=== PATIENT | male | born 1965 | race African-American/Black ===

== ENCOUNTER 2019-01-10 17:02 | Emergency (ER) | payer BC, OTHER ==
[2019-01-10] MEDS ORDERED: NA CHLORIDE 0.9% 1,000 ML ONE (17:29)
[2019-01-10] MEDS ORDERED: CEFTRIAXONE/SWI 1gm 1 GM/10 ML SYR ONE (17:30)
[2019-01-10 17:59] LABS: Absolute Lymphocytes (CBC) 2.3 K/uL (0.7-4.9); Hematocrit 35.1 % (39.6-49.0); Lymphocytes % 16.1 % (15.3-44.8); MPV 10.6 fL (7.6-11.3); RBC Red Blood Cell Count 3.87 M/uL (4.33-5.43)
[2019-01-10] MEDS ORDERED: METOCLOPRAMIDE 10 MG/2mL INJ ONE (18:02)
[2019-01-10] MEDS ORDERED: KETOROLAC 30 MG/ML INJ ONE (18:02)
[2019-01-10 18:17] LABS: ALT/SGPT 17 U/L (12-78); AST/SGOT 12 U/L (15-37); Albumin 3.6 g/dL (3.4-5.0); Alkaline Phosphatase 67 U/L (45-117); BUN Blood Urea Nitrogen 11 mg/dL (7-18); Bicarbonate 30 mmol/L (21-32); Bilirubin Direct 0.2 mg/dL (0-0.2); Glucose Level 90 mg/dL (74-106); Lipase 60 U/L (73-393); Potassium 3.4 mmol/L (3.5-5.1); Protein, Total 7.5 g/dL (6.4-8.2); Sodium Level 139 mmol/L (136-145)
[2019-01-10 19:21] LABS: Urine Blood NEGATIVE (NEG); Urine Glucose NEGATIVE (NEG); Urine Protein NEGATIVE (NEG)
--- NOTE | 2019-01-10 19:26 | ER ---
Nurse's Notes [facility] Name: Jamar Cheng Age: 53 yrs Sex: Male : 1965 Arrival Date: 01/10/2019 Time: 17:03 Bed 18 Private MD: Diagnosis: Cystitis, unspecified without hematuria Presentation: 01/10 17:13 Presenting complaint: Patient states: Has hesitancy when urinating, has gotten worse rb1 since Thursday. Headache, weakness started on Thursday. c/o nausea and constipation. Transition of care: patient was not received from another setting of care. Onset of symptoms was January 07, 2019. Risk Assessment: Do you want to hurt yourself or someone else? Patient reports no desire to harm self or others. Care prior to arrival: None. 17:13 Method Of Arrival: Ambulatory rb1 17:13 Acuity: IRWIN 3 rb1 Triage Assessment: 17:24 The onset of the patients symptoms was January 10, 2019 at 06:00. General: Appears in bp no apparent distress. comfortable, Behavior is cooperative, appropriate for age, anxious. Pain: Complains of pain in head. EENT: No deficits noted. Neuro: Reports headache weakness. Cardiovascular: No deficits noted. Respiratory: No deficits noted. GI: No signs and/or symptoms were reported involving the gastrointestinal system. : Reports URINARY HESITANCY. Derm: No deficits noted. Musculoskeletal: No deficits noted. Historical: - Allergies: 17:17 No Known Allergies; rb1 - Home Meds: 17:17 metformin 500 mg Oral tab 1 tab 2 times per day [Active]; lisinopril 10 mg Oral tab 1 rb1 tab once daily [Active]; amlodipine 10 mg tab 1 tab once daily [Active]; Protonix 40 mg Oral grps 1 packet once daily [Active]; atorvastatin 20 mg oral tab 1 tab once daily [Active]; hydrochlorothiazide 12.5 mg Oral cap 1 cap once daily [Active]; metoprolol tartrate 50 mg Oral tab 1 tab 2 times per day [Active]; - PMHx: 17:17 Diabetes - NIDDM; Hypertension; rb1 - PSHx: 17:17 None; rb1 - Immunization history:: Adult Immunizations up to date. - Social history:: Smoking status: Patient uses tobacco products, smokes one-half pack cigarettes per day, Patient/guardian denies using alcohol, street drugs, The patient lives with family. - Ebola Screening: : Patient negative for fever greater than or equal to 101.5 degrees Fahrenheit, and additional compatible Ebola Virus Disease symptoms. - Family history:: not pertinent. Screenin:26 Abuse screen: Denies threats or abuse. Denies injuries from another. Nutritional bp screening: No deficits noted. Tuberculosis screening: No symptoms or risk factors identified. Fall Risk None identified. Assessment: 17:26 General: SEE TRIAGE NOTE. bp 18:08 Reassessment: IVF INFUSING, UOP PENDING. ST ON MONITOR. bp Vital Signs: 17:17 BP 127 / 87; Pulse 108; Resp 18; Temp 100.3(O); Pulse Ox 97% on R/A; Weight 124.74 kg; rb1 Height 5 ft. 10 in. (177.80 cm) (R); Pain 6/10; 18:08 BP 137 / 84; Pulse 100; Resp 16; Pulse Ox 95% ; bp 19:30 BP 125 / 69; Pulse 93; Resp 18; Temp 98.6; Pulse Ox 99% on R/A; wh 17:17 Body Mass Index 39.46 (124.74 kg, 177.80 cm) rb1 ED Course: 17:03 Patient arrived in ED. rg4 17:15 Triage completed. rb1 17:17 Arm band placed on left wrist. rb1 17:23 Melissa Alcala MD is Attending Physician. ma2 17:23 Jass Talavera, MELISSA is Primary Nurse. bp 17:26 Patient has correct armband on for positive identification. Bed in low position. Call bp light in reach. Side rails up X2. 17:40 Inserted saline lock: 20 gauge in right forearm, using aseptic technique. Blood bp collected. 19:35 No provider procedures requiring assistance completed. IV discontinued, intact, wh bleeding controlled, No redness/swelling at site. Administered Medications: 17:40 Drug: NS 0.9% 1000 ml Route: IV; Rate: 1 bolus; Site: right forearm; bp 17:40 Drug: Rocephin 1 grams Route: IV; Rate: calculated rate; Site: right forearm; bp 17:45 Drug: TORadol 30 mg Route: IVP; Site: right forearm; bp 20:01 Follow up: Response: No adverse reaction 17:45 Drug: Reglan 10 mg Route: IVP; Site: right forearm; bp 20:02 Follow up: Response: No adverse reaction; Nausea is decreased Outcome: 19:24 Discharge ordered by . carlton 19:35 Discharged to home ambulatory, with family. 19:35 Condition: stable 19:35 Discharge instructions given to patient, family, Instructed on discharge instructions, follow up and referral plans. no drinking with medication, no driving heavy equipment, medication usage, POC UTI Demonstrated understanding of instructions, follow-up care, medications, POC Prescriptions given X 3. 19:40 Patient left the ED. Signatures: Claire Duong, RN RN rb1 Helen Rangel rg4 Maykel Hi Jass Talavera RN RN bp Melissa Alcala MD MD ma2
--- NOTE | 2019-01-10 19:26 | EDPHYS ---
Physician Documentation [facility] Name: Jamar Cheng Age: 53 yrs Sex: Male : 1965 Arrival Date: 01/10/2019 Time: 17:03 Bed 18 Private MD: ED Physician Melissa Alcala HPI: 01/10 19:23 This 53 yrs old Black Male presents to ER via Ambulatory with complaints of Urinary ma2 Problem, Weakness, Headache. 19:23 The patient presents to the emergency department with. Onset: The symptoms/episode ma2 began/occurred gradually, 1 week(s) ago. Associated signs and symptoms: Pertinent positives: dysuria , Pertinent negatives: chills, dizziness, headache, paresthesias, seizure, near-syncope, double vision, weakness. Severity of symptoms: At their worst the symptoms were mild in the emergency department the symptoms are unchanged. Current symptoms: Currently, the patient is not experiencing any symptoms. The patient has experienced similar episodes in the past. Historical: - Allergies: 17:17 No Known Allergies; rb1 - Home Meds: 17:17 metformin 500 mg Oral tab 1 tab 2 times per day [Active]; lisinopril 10 mg Oral tab 1 rb1 tab once daily [Active]; amlodipine 10 mg tab 1 tab once daily [Active]; Protonix 40 mg Oral grps 1 packet once daily [Active]; atorvastatin 20 mg oral tab 1 tab once daily [Active]; hydrochlorothiazide 12.5 mg Oral cap 1 cap once daily [Active]; metoprolol tartrate 50 mg Oral tab 1 tab 2 times per day [Active]; - PMHx: 17:17 Diabetes - NIDDM; Hypertension; rb1 - PSHx: 17:17 None; rb1 - Immunization history:: Adult Immunizations up to date. - Social history:: Smoking status: Patient uses tobacco products, smokes one-half pack cigarettes per day, Patient/guardian denies using alcohol, street drugs, The patient lives with family. - Ebola Screening: : Patient negative for fever greater than or equal to 101.5 degrees Fahrenheit, and additional compatible Ebola Virus Disease symptoms. - Family history:: not pertinent. ROS: 19:23 Constitutional: Negative for fever, chills, and weight loss. ma2 19:23 All other systems are negative. Exam: 19:23 Constitutional: This is a well developed, well nourished patient who is awake, alert, ma2 and in no acute distress. Chest/axilla: Normal chest wall appearance and motion. Nontender with no deformity. No lesions are appreciated. Cardiovascular: Regular rate and rhythm with a normal S1 and S2. No gallops, murmurs, or rubs. Normal PMI, no JVD. No pulse deficits. Respiratory: Lungs have equal breath sounds bilaterally, clear to auscultation and percussion. No rales, rhonchi or wheezes noted. No increased work of breathing, no retractions or nasal flaring. Abdomen/GI: Soft, non-tender, with normal bowel sounds. No distension or tympany. No guarding or rebound. No evidence of tenderness throughout. 19:23 MS/ Extremity: Pulses equal, no cyanosis. Neurovascular intact. Full, normal range ma2 of motion. Neuro: Awake and alert, GCS 15, oriented to person, place, time, and situation. Cranial nerves II-XII grossly intact. Motor strength 5/5 in all extremities. Sensory grossly intact. Cerebellar exam normal. Normal gait. Vital Signs: 17:17 BP 127 / 87; Pulse 108; Resp 18; Temp 100.3(O); Pulse Ox 97% on R/A; Weight 124.74 kg; rb1 Height 5 ft. 10 in. (177.80 cm) (R); Pain 6/10; 18:08 BP 137 / 84; Pulse 100; Resp 16; Pulse Ox 95% ; bp 19:30 BP 125 / 69; Pulse 93; Resp 18; Temp 98.6; Pulse Ox 99% on R/A; wh 17:17 Body Mass Index 39.46 (124.74 kg, 177.80 cm) rb1 MDM: 17:23 Patient medically screened. ma2 19:23 Data reviewed: vital signs, nurses notes. Counseling: I had a detailed discussion with carlton the patient and/or guardian regarding: the historical points, exam findings, and any diagnostic results supporting the discharge/admit diagnosis, the presence of at least one elevated blood pressure reading (>120/80) during this emergency department visit, the need for outpatient follow up. Response to treatment: the patient's symptoms have markedly improved after treatment. 01/10 17:24 Order name: Basic Metabolic Panel; Complete Time: 19:00 sc2 01/10 17:24 Order name: CBC with Diff; Complete Time: 19:00 ma2 01/10 17:24 Order name: Creatinine for Radiology; Complete Time: 19:00 ma2 01/10 17:24 Order name: Hepatic Function; Complete Time: 19:00 ma2 01/10 17:24 Order name: Lipase; Complete Time: 19:00 ma2 01/10 18:59 Order name: Urine Dipstick--Ancillary (enter results) 01/10 17:24 Order name: IV Saline Lock; Complete Time: 17:57 ma2 01/10 17:24 Order name: Labs collected and sent; Complete Time: 17:57 ma2 01/10 17:24 Order name: Urine Dipstick-Ancillary (obtain specimen); Complete Time: :00 ma2 Administered Medications: 17:40 Drug: NS 0.9% 1000 ml Route: IV; Rate: 1 bolus; Site: right forearm; bp 17:40 Drug: Rocephin 1 grams Route: IV; Rate: calculated rate; Site: right forearm; bp 17:45 Drug: TORadol 30 mg Route: IVP; Site: right forearm; bp 20:01 Follow up: Response: No adverse reaction 17:45 Drug: Reglan 10 mg Route: IVP; Site: right forearm; bp 20:02 Follow up: Response: No adverse reaction; Nausea is decreased Disposition: 01/10/19 19:24 Discharged to Home. Impression: Cystitis, unspecified without hematuria. - Condition is Stable. - Discharge Instructions: Urinary Tract Infection, Adult. - Prescriptions for Tylenol- Codeine #3 300-30 mg Oral Tablet - take 2 tablet by ORAL route every 6 hours As needed; 30 tablet. Flomax 0.4 mg Oral Capsule, Sust. Release 24 hr - take 1 capsule by ORAL route once daily 1/2 hour following the same meal each day; 30 capsule. Bactrim DS 800- 160 mg Oral Tablet - take 1 tablet by ORAL route every 12 hours for 5 days; 10 tablet. - Family Work Release, Medication Reconciliation Form, Thank You Letter, Antibiotic Education, Prescription Opioid Use form. - Follow up: Private Physician; When: Tomorrow; Reason: Continuance of care. Signatures: Dispatcher MedHoRUSTClaire Baez, RN RN rb1 Maykel Hi Brian RN RN Melissa Alcala MD MD ma2 Corrections: (The following items were deleted from the chart) 19:40 19:24 01/10/2019 19:24 Discharged to Home. Impression: Cystitis, unspecified without wh hematuria. Condition is Stable. Prescriptions for Tylenol-Codeine #3 300-30 mg Oral Tablet - take 2 tablet by ORAL route every 6 hours As needed; 30 tablet, Flomax 0.4 mg Oral Capsule, Sust. Release 24 hr - take 1 capsule by ORAL route once daily 1/2 hour following the same meal each day; 30 capsule, Bactrim DS 800-160 mg Oral Tablet - take 1 tablet by ORAL route every 12 hours for 5 days; 10 tablet. and Forms are Medication Reconciliation Form, Thank You Letter, Antibiotic Education, Prescription Opioid Use. Follow up: Private Physician; When: Tomorrow; Reason: Continuance of care. ma2
[2019-01-10 19:50] VITALS: TEMP 100.3
[2019-01-10 19:51] VITALS: BP 137/84; O2SAT 95
== END 2019-01-10 19:40 | disposition home or self-care (01) ==
LOC: ER 17:02
DX: N30.90 Cystitis, unspecified without hematuria (principal); I10 Essential (primary) hypertension; E11.9 Type 2 diabetes mellitus without complications; F17.210 Nicotine dependence, cigarettes, uncomplicated
CPT/HCPCS: 85025; 80048; 36415; 80076; 81003; 83690; 96375; 96374; 99284; J2765; J0696; J7030

== ENCOUNTER 2020-08-20 06:57 | Emergency (ER) | payer BC ==
--- OUTSIDE RECORDS SUMMARY | 2020-08-20 07:21 | XMS REPORT | Continuity of Care Document ---
:1965 Author Organization [facility] t Address [address] [place] [address] Care Team Providers Name Role Phone Lab, Fam Pob I Attending Clinician Unavailable Problems This patient has no known problems. Allergies, Adverse Reactions, Alerts This patient has no known allergies or adverse reactions. Medications Ordered Filled Start Stop Current Ordering Indication Dosage Frequency Signature Comments Components Source Medication Medication Date Date Medication? Clinician (SIG) Name Name Negrito Mahan Yes Seamus [address] [facility] Tradjenta Tradjenta Yes Seamus [address] [facility] Hydrochloro Hydrochloro Yes Seamus TAKE [address] [facility] thiazide thiazide [facility] TABLET BY [facility] - MOUTH [facility] EVERY DAY l IN THE Outpati MORNING ent Clinics Immunizations Ordered Filled Immunization Date Status Comments Sourc e Immunization Name Name TDAP > 7 TDAP > 7 2018-06-[address] [facility] - Years-Adacel Years-Adacel 00:00:00 [facility] PNEUMAVAX 23 PNEUMAVAX 23 2018-06-[address] [facility] - 00:[facility]00 [facility] Afluria Afluria 2018-06-[address] [facility] - 00:[facility]:00 [facility] Procedures This patient has no known procedures. Encounters Start End Encounter Admission Attending Care Care Encounter Source Date/Time Date/Time Type Type Clinicians Facility Department ID 2020-07-17 2020-07-17 Out[facility] [id number] [facility] 2020-05-09 2020-05-09 [facility] [id number] [facility] 2020-03-30 2020-03-30 [facility] [id number] [facility] 2020-03-21 2020-03-21 Laboratory Lab, Adc [facility] [id number] 18:39:35 18:59:35 Only [facility] [id number] [place] [id number] Professio [id number] nal [address] 2019-12-16 2019-12-16 Outpatient [facility] [id number] [facility] 2019-11-22 2019-11-22 [facility] [id number] [facility] 2019-11-03 2019-11-03 [facility] [id number] [facility] 14:32:00 14:32:00 [employer] [facility] 2019-11-01 2019-11-01 [facility] [id number] [address] 16:25:00 16:25:00 [employer] [facility] 2019-10-20 2019-10-20 [facility] [id number] 16:15:00 16:15:00 [employer] [facility] 2019-10-20 2019-10-20 [facility] [id number] 09:55:00 09:55:[address] [facility] Out[facility] Clinics 2019-10-20 2019-10-20 [facility] [id number] 09:46:00 09:46:[address] [facility] Out[facility] Clin[facility] 2019-10-03 2019-10-03 [facility] [id number] 13:26:00 13:26:00 t Specialty/U Pamella [facility] - Specialty [facility]y [facility] Outpati ent Clinics 2019-09-29 2019-09-29 [facility] [id number] 15:40:00 15:40:[address] [facility] Out[facility] Clinics 2019-09-27 2019-09-27 [facility] [id number] 10:30:00 10:30:00 t Specialty/U Pamella kes - Specialty rology [facility]rology [facility] l Clinic Outpati ent Clinics 2019-09-14 2019-09-14 [facility] [id number] 13:28:00 13:28:00 t Specialty/U Pamella kes - Specialty rology [facility] l Clinic Outpati ent Clinics 2019-09-01 2019-09-01 [facility] [id number] 16:15:00 16:15:[address] [facility] 2019-08-12 2019-08-12 [facility] [id number] 16:00:00 16:00:00 t Specialty/U Pamella kes - Specialty rology [facility]rology [facility] l Clinic Outpati ent Clinics 2019-08-02 2019-08-02 [facility] [id number] 08:45:00 08:45:[address] [facility] Outpat[facility] Clinics 2019-03-07 2019-03-07 [facility] [id number] 13:00:00 13:00:00 t Specialty/U Pamella kes - Specialty rology [facility]Urology Clinic l Clinic Outpati ent Clinics 2019-02-28 2019-02-28 [facility] [id number] 08:47:00 08:47:00 t Specialty/U Pamella kes - Specialty rology [facility]rology [facility] l Clinic Outpati ent Clinics 2019-02-04 2019-02-04 [facility] [id number] 15:00:00 15:00:00 t Specialty/U Pamella kes - Specialty rology [facility]rology [facility] l Clinic Outpati ent Clinics 2019-01-20 2019-01-20 [facility] [id number] 15:45:00 15:45:00 [place] [email or web address] s - Drive [facility] l Medicine Outpati ent Clinics 2019-01-17 2019-01-17 [facility] [id number] 17:07:00 17:07:00 t [place] [employer] s - Drive [facility] Medicine Outpati ent Clinics 2019-01-12 2019-01-12 [facility] [id number] 09:38:00 09:38:00 t [place] [email or web address] s - Drive [facility] l Medicine Outpati ent Clinics 2018-10-13 2018-10-13 [facility] [id number] 10:20:00 10:20:00 t [place] [email or web address] s - Drive [facility] l Medicine Outpati ent Clinics 2018-09-28 2018-09-28 [facility] [id number] 16:45:00 16:45:00 t [place] [email or web address] s - Drive [facility] l Medicine Outpati ent Clinics 2018-06-16 2018-06-16 [facility] [id number] 16:15:00 16:15:00 t [place] [employer] s - Drive [facility] Medicine l Medicine Outpati ent Clinics 2018-05-12 2018-05-12 [facility] [id number] 16:45:00 16:45:00 [place] [employer] s - Drive [facility] Medicine l Medicine Outpati ent Clinics 2017-10-12 2017-10-12 Outpatient Magdalena Agrawal [id number] 13:30:00 13:30:00 t [place] [place] [facility] ent Clinics Results This patient has no known results.
[2020-08-20] MEDS ORDERED: KETOROLAC 30 MG/ML INJ ONE (08:15)
[2020-08-20] MEDS ORDERED: DIAZEPAM 10 MG/2 ML INJ SYRINGE ONE (08:16)
[2020-08-20] MEDS ORDERED: predniSONE 20 MG TAB ONE ×2 (08:17)
--- NOTE | 2020-08-20 08:20 | RAD REPORT ---
EXAM DESCRIPTION: RAD - Lumbar Spine 3 Views - 08/20/2020 8:01 am CLINICAL HISTORY: PAIN COMPARISON: No comparisons FINDINGS: A three-view lumbar spine examination was performed. T12 and L1 body shows a very slight anterior wedge configuration. This can be seen normally. No histo ry of trauma was noted. L2-L5 bodies are normal in height. There is minimal endplate spurring changes in L3 and L4. No fracture or acute bony process seen. No disc space narrowing. Mild facet joint dege nerative changes are present. No pars defects identified. IMPRESSION: There is anterior wedging of the T12 and L1 bodies that is probably baseline for the pat ient. However, if there are thoracolumbar junction localizing pain symptoms, MR imaging could be perf ormed to assess for any active marrow process. No disc space narrowing or other significant findings identifiable. No acute process suspected. Concerns for disc herniation, central canal abnormality or occult bone process can be further evaluat ed with follow-up outpatient MR imaging.
--- NOTE | 2020-08-20 08:21 | ER ---
Nurse's Notes [facility] Name: Jamar Cheng Age: 55 yrs Sex: Male : 1965 Arrival Date: 08/20/2020 Time: 06:59 Bed 4 Private MD: Diagnosis: Low back pain Presentation: 08/20 07:13 Chief complaint: Patient states: L low back/L hip pain since . States he has ll1 pain there off/on for 1 year. Pain radiates down L leg. Coronavirus screen: Client denies travel out of the [place] in the last 14 days. At this time, the client does not indicate any symptoms associated with coronavirus-19. Ebola Screen: Patient denies travel to an Ebola-affected area in the 21 days before illness onset. Initial Sepsis Screen: Does the patient meet any 2 criteria? No. Patient's initial sepsis screen is negative. Does the patient have a suspected source of infection? No. Patient's initial sepsis screen is negative. Risk Assessment: Do you want to hurt yourself or someone else? Patient reports no desire to harm self or others. Onset of symptoms was August 16, 2020. 07:13 Method Of Arrival: Ambulatory ll1 07:13 Acuity: IRWIN 4 ll1 Triage Assessment: 07:15 General: Appears distressed, uncomfortable, Behavior is calm, cooperative, appropriate bp for age. Pain: Complains of pain in left leg. EENT: No deficits noted. Neuro: No deficits noted. Cardiovascular: No deficits noted. Respiratory: No deficits noted. GI: No signs and/or symptoms were reported involving the gastrointestinal system. : No signs and/or symptoms were reported regarding the genitourinary system. Derm: No deficits noted. Musculoskeletal: No deficits noted. Historical: - Allergies: 07:13 No Known Allergies; ll1 - PMHx: 07:13 Hypertension; Diabetes - NIDDM; borderline; ll1 - PSHx: 07:13 None; ll1 - Immunization history:: Flu vaccine is up to date. - Social history:: Smoking status: Patient reports the use of cigarette tobacco products, smokes one-half pack cigarettes per day. - Family history:: not pertinent. Screenin:15 Abuse screen: Denies threats or abuse. Nutritional screening: No deficits noted. bp Tuberculosis screening: No symptoms or risk factors identified. Fall Risk None identified. Assessment: 07:15 General: SEE TRIAGE NOTE. bp Vital Signs: 07:13 BP 133 / 93; Pulse 74; Resp 16; Temp 98.3; Pulse Ox 96% ; Weight 127.01 kg; Height 5 ll1 ft. 10 in. (177.80 cm); Pain 10/10; 07:13 Body Mass Index 40.18 (127.01 kg, 177.80 cm) ll1 ED Course: 06:59 Patient arrived in ED. as 07:12 Arm band placed on Patient placed in an exam room, on a stretcher. ll1 07:15 Triage completed. ll1 07:15 Patient has correct armband on for positive identification. Fall risk band placed. bp Placed in gown. Bed in low position. Call light in reach. Side rails up X2. 07:16 Jass Talavera, MELISSA is Primary Nurse. bp 07:17 Melissa Alcala MD is Attending Physician. ma2 07:56 X-ray completed. Patient tolerated procedure well. Patient moved to radiology via hb2 wheelchair. Patient moved back from radiology. 07:57 Lumbar Spine (3 Views) XRAY In Process Unspecified. EDMS 09:02 No provider procedures requiring assistance completed. Patient did not have IV access iw during this emergency room visit. Administered Medications: 08:00 Drug: TORadol (ketorolac) 60 mg Route: IM; Site: left gluteus; bp 08:26 Follow up: Response: No adverse reaction; Pain is decreased bp 08:00 Drug: predniSONE 40 mg Route: PO; bp 08:26 Follow up: Response: No adverse reaction bp 08:00 Drug: Valium (diazepam) 5 mg Route: IM; Site: left gluteus; bp 08:26 Follow up: Response: No adverse reaction; Marked relief of symptoms bp Outcome: 08:20 Discharge ordered by . ma2 09:01 Discharged to home ambulatory, with family. iw 09:01 Condition: good 09:01 Discharge instructions given to patient, family, Instructed on discharge instructions, follow up and referral plans. medication usage, Demonstrated understanding of instructions, follow-up care, medications, Prescriptions given X 3. 09:02 Patient left the ED. iw Signatures: Dispatcher [employer] EDMS Irina Reyes Irene, RN RN iw Jass Talavera, RN RN bp Melissa Alcala MD MD ma2 Roverto Blair 2 Emmanuel Blake RN RN ll1
--- NOTE | 2020-08-20 08:21 | EDPHYS ---
Physician Documentation [facility] Name: Jamar Cheng Age: 55 yrs Sex: Male : 1965 Arrival Date: 08/20/2020 Time: 06:59 Bed 4 Private MD: ED Physician Melissa Alcala HPI: 08/20 08:19 This 55 yrs old Black Male presents to ER via Ambulatory with complaints of Low Back ma2 Pain. 08:19 The patient presents with pain that is chronic. The symptoms are located in the low ma2 back. Onset: The symptoms/episode began/occurred gradually, 1 day(s) ago. Associated signs and symptoms: Pertinent negatives: fever, headache, nausea, numbness. Severity of symptoms: At their worst the symptoms were very mild. Historical: - Allergies: 07:13 No Known Allergies; ll1 - PMHx: 07:13 Hypertension; Diabetes - NIDDM; borderline; ll1 - PSHx: 07:13 None; ll1 - Immunization history:: Flu vaccine is up to date. - Social history:: Smoking status: Patient reports the use of cigarette tobacco products, smokes one-half pack cigarettes per day. - Family history:: not pertinent. ROS: 08:19 Constitutional: Negative for fever, chills, and weight loss. ma2 08:19 All other systems are negative. Exam: 08:19 Constitutional: This is a well developed, well nourished patient who is awake, alert, ma2 and in no acute distress. Chest/axilla: Normal chest wall appearance and motion. Nontender with no deformity. No lesions are appreciated. Cardiovascular: Regular rate and rhythm with a normal S1 and S2. No gallops, murmurs, or rubs. Normal PMI, no JVD. No pulse deficits. Respiratory: Lungs have equal breath sounds bilaterally, clear to auscultation and percussion. No rales, rhonchi or wheezes noted. No increased work of breathing, no retractions or nasal flaring. Abdomen/GI: Soft, non-tender, with normal bowel sounds. No distension or tympany. No guarding or rebound. No evidence of tenderness throughout. Back: No spinal tenderness. No costovertebral tenderness. Full range of motion. MS/ Extremity: Pulses equal, no cyanosis. Neurovascular intact. Full, normal range of motion. Neuro: Awake and alert, GCS 15, oriented to person, place, time, and situation. Cranial nerves II-XII grossly intact. Motor strength 5/5 in all extremities. Sensory grossly intact. Cerebellar exam normal. Normal gait. Vital Signs: 07:13 BP 133 / 93; Pulse 74; Resp 16; Temp 98.3; Pulse Ox 96% ; Weight 127.01 kg; Height 5 ll1 ft. 10 in. (177.80 cm); Pain 10; 07:13 Body Mass Index 40.18 (127.01 kg, 177.80 cm) ll1 MDM: 07:25 Patient medically screened. ma2 08:19 Differential diagnosis: strain, fracture, contusion, Herniated disc. Data reviewed: ma2 vital signs, nurses notes. Counseling: I had a detailed discussion with the patient and/or guardian regarding: the historical points, exam findings, and any diagnostic results supporting the discharge/admit diagnosis, the presence of at least one elevated blood pressure reading (>120/80) during this emergency department visit, the need for outpatient follow up. Response to treatment: the patient's symptoms have markedly improved after treatment. 08:21 ED course: no low back pain red flags, no urinary incontinence, medline ttp, fever or ma2 focal neurological deficit . 06 07:44 Order name: Lumbar Spine (3 Views) XRAY ma2 Administered Medications: 08:00 Drug: TORadol (ketorolac) 60 mg Route: IM; Site: left gluteus; bp 08:26 Follow up: Response: No adverse reaction; Pain is decreased bp 08:00 Drug: predniSONE 40 mg Route: PO; bp 08:26 Follow up: Response: No adverse reaction bp 08:00 Drug: Valium (diazepam) 5 mg Route: IM; Site: left gluteus; bp 08:26 Follow up: Response: No adverse reaction; Marked relief of symptoms bp Disposition: 08/20/20 08:20 Discharged to Home. Impression: Low back pain. - Condition is Stable. - Discharge Instructions: Back Pain, Adult. - Prescriptions for Cyclobenzaprine 10 mg Oral Tablet - take 1 tablet by ORAL route every 8 hours As needed; 30 tablet. Diclofenac Sodium 75 mg Oral Tablet Sustained Release - take 1 tablet by ORAL route 2 times per day; 30 tablet. Medrol (Channing) 4 mg Oral Tablets, Dose Pack - take 1 tablet by ORAL route as directed - follow package instructions; 1 packet. - Work release form, Medication Reconciliation Form, Thank You Letter, Antibiotic Education, Prescription Opioid Use form. - Follow up: Private Physician; When: Tomorrow; Reason: If symptoms return, Continuance of care. Signatures: Dispatcher [employer] Inessa Ashley RN RN iw Peltier, Brian, RN RN Melissa Almaguer MD MD ma2 Emmanuel Blake RN RN ll1 Corrections: (The following items were deleted from the chart) 09:02 08:20 08/20/2020 08:20 Discharged to Home. Impression: Low back pain. Condition is iw Stable. Prescriptions for Cyclobenzaprine 10 mg Oral Tablet - take 1 tablet by ORAL route every 8 hours As needed; 30 tablet, Diclofenac Sodium 75 mg Oral Tablet Sustained Release - take 1 tablet by ORAL route 2 times per day; 30 tablet, Medrol (Channing) 4 mg Oral Tablets, Dose Pack - take 1 tablet by ORAL route as directed - follow package instructions; 1 packet. and Forms are Medication Reconciliation Form, Thank You Letter, Antibiotic Education, Prescription Opioid Use. Follow up: Private Physician; When: Tomorrow; Reason: If symptoms return, Continuance of care. ma2
[2020-08-20 09:11] VITALS: BP 133/93; TEMP 98.3; O2SAT 96
== END 2020-08-20 09:02 | disposition home or self-care (01) ==
LOC: ER 06:57
DX: M54.5 Low back pain (principal); F17.210 Nicotine dependence, cigarettes, uncomplicated; E11.9 Type 2 diabetes mellitus without complications; I10 Essential (primary) hypertension
CPT/HCPCS: 72100; 96372; 99283; J3360; J7512

== ENCOUNTER 2020-12-25 18:00 | Emergency (ER) | payer OTHER, BC ==
[2020-12-25] MEDS ORDERED: IBUPROFEN 400 MG TAB ONE (18:48)
[2020-12-25] MEDS ORDERED: CYCLOBENZAPRINE 10 MG TAB ONE (18:48)
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
[2020-12-25 19:30] VITALS: BP 144/76; TEMP 97.9; O2SAT 96
== END 2020-12-25 19:12 | disposition home or self-care (01) ==
LOC: ER 18:00
DX: S39.012A Strain of muscle, fascia and tendon of lower back, initial encounter (principal); V49.40XA Driver injured in collision with unspecified motor vehicles in traffic accident, initial encounter; I10 Essential (primary) hypertension; E11.9 Type 2 diabetes mellitus without complications; F17.210 Nicotine dependence, cigarettes, uncomplicated
CPT/HCPCS: 72100; 99284

== ENCOUNTER 2022-04-19 10:21 | Emergency (ER) | payer BC ==
--- OUTSIDE RECORDS SUMMARY | 2022-04-19 10:27 | XMS REPORT | Continuity of Care Document ---
:1965 Author Organization [facility] t Address [address] [place] [address] Care Team Providers Name Role Phone Pcp, Patient Does Not Have A Primary Care Physician [phone] Seamus Crespo Attending Clinician Unavailable Ary Araujo RN Attending Clinician Unavailable Only, Ang Db Test Attending Clinician Unavailable Darleen Jones Attending Clinician DARLEEN LOUISE Attending Clinician Unavailable Ghada Barillas RN Attending Clinician Unavailable STEFANIE LAST Attending Clinician Unavailable Doctor Unassigned, [place] Attending Clinician Unavailable MARY MUNGUIA Attending Clinician Unavailable Lab, Adc Fam Pob I Attending Clinician Unavailable Mary Mosher Attending Clinician Payers Payer Name Policy Type Policy Number Effective Date Expiration Date Sofie pandey [employer] 6 [id number] 2018 Common Spiri t Blue Shield of 00:00:00 - [facility] Problems Condition Condition Condition Status Onset Resolution Last Treating Co mments Source Name Details Category Date Date Treatment Clinician Date No known No known Disease Unive rs active active ity of problems problems [facility] [id number] Benign Problem Common prostatic Spirit hyperplasi - [facility] symptoms present Mixed Hyperlipid Problem Commo n hyperlipid emia, Spirit emia mixed - [facility] Erectile Erectile Problem Commo n dysfunctio dysfunctio Sp graham n n - [facility] [id number] Other Problem Common chronic Spirit pain - [facility] Type II Diabetes Problem Common diabetes type 2, Spirit mellitus controlled - [facility] I well [facility] [id number] BPH loc Problem Commo n w/o ur Spirit obs/TS [facility] Tobacco Tobacco Problem Common dependence abuse [facility] syndrome disorder [facility] [id number] BPH loc w Problem Com mon urin Spirit obs/LUTS [facility] Constipati Constipati Problem C ommon on on Spirit [facility] Gastroesop GERD Problem Commo n hageal (g[facility]eso [facility] disease reflux St disease) [facility] Essential Benign Problem Common hypertensi essential Spi rit on HTN [facility] [id number] Adult BMI Problem Com mon 40.0-44.9 Spirit kg/sq m [facility] Allergies, Adverse Reactions, Alerts Allergy Allergy Status Severity Reaction(s) Onset Inactive Treating Comm ents Source Name Type Date Date Clinician NO KNOWN Drug Active Univers ALLERGIE Class ity of S [facility] Social History Social Habit Start Date Stop Date Quantity Comments Source Exposure to Not sure [facility] SARS-CoV-2 (event) Medica l Branch History of Tobacco Current Smoker Co mmon Spirit - [facility] Use [facility] Sex Assigned At Common Sp graham - [facility] Smoking Status Start Date Stop Date Source Current Smoker 2022-01-18 00:00:00 Common Spiri t - [facility] Unknown if ever smoked [facility] Medications Ordered Filled Start Stop Current Ordering Indication Dosage Frequency Signature Comments Components Source Medication Medication Date Date Medication? Clinician (SIG) Name Name Albertina Eng 2021-03 No 40mg Common (Triamcinol (Triamcinol 1-23 S pirit one) one) 00:00: - [facility] 00 [facility] Kenalog Kenalog 2021- No 40mg Common (Triamcinol (Triamcinol 1-23 S pirit one) one) 00:00: - [facility] 00 [facility] Tamsulosin Tamsulosin 2021-0 3- No 1{capsu BID Tamsulosin HCl 0.4 MG HCl 0.4 MG 06-20 le} HCl 0.4 MG 00:00: 00:00 00 :00 Tamsulosin Tamsulosin 2021-0 3- No 1{capsu BID Tamsulosin HCl 0.4 MG HCl 0.4 MG 06-20 le} HCl 0.4 MG 00:00: 00:00 00 :00 Tamsulosin Tamsulosin 2021-3- No 1{capsu BID Tamsulosin HCl 0.4 MG HCl 0.4 MG 06-20 le} HCl 0.4 MG 00:00: 00:00 00 :00 Tamsulosin Tamsulosin 2021-0 3- No 1{capsu BID Tamsulosin HCl 0.4 MG HCl 0.4 MG 06-20 le} HCl 0.4 MG 00:00: 00:00 00 :00 Tamsulosin Tamsulosin 2021-0 3- No 1{capsu BID Tamsulosin HCl 0.4 MG HCl 0.4 MG 06-20 le} HCl 0.4 MG 00:00: 00:00 00 :00 Tamsulosin Tamsulosin 2021-0 3- No 1{capsu BID Tamsulosin HCl 0.4 MG HCl 0.4 MG 06-20 le} HCl 0.4 MG 00:00: 00:00 00 :00 Tamsulosin Tamsulosin 2021-3- No 1{capsu BID Tamsulosin HCl 0.4 MG HCl 0.4 MG 06-20 le} HCl 0.4 MG 00:00: 00:00 00 :00 Tamsulosin Tamsulosin 2021-0 3- No 1{capsu BID Tamsulosin HCl 0.4 MG HCl 0.4 MG 06-20 le} HCl 0.4 MG 00:00: 00:00 00 :00 Tamsulosin Tamsulosin 2021-0 2023- No 1{capsu BID Tamsulosin HCl 0.4 MG HCl 0.4 MG 06-20 le} HCl 0.4 MG 00:00: 00:00 00 :00 Tamsulosin Tamsulosin 2021-0 2022- No 1{capsu QD Tamsulosin HCl 0.4 MG HCl 0.4 MG 06-20 le} HCl 0.4 MG 00:00: 00:00 00 :00 Medrol 4 MG Medrol 4 MG 2021-0 2021- No Medrol 4 1-05 01-11 MG 00:00: 00:00 00 :00 Sildenafil Sildenafil 0 No QD Sildenafil Citrate 100 Citrate 100 7-21 Citrate MG MG 00:00: 100 MG 00 Januvia Januvia 2019-0 Yes Seamus 1 tablet C ommon 11-03 [place] Spirit 00:00: - [facility] 00 [facility] Tradjenta Tradjenta 2019-0 Yes Seamus 1 tablet Common 11-01 [place] Spirit 00:00: - [facility] 00 [facility] Iron 325 Iron 325 2020-0 No 1{table BID Iron 325 (65 Fe) MG (65 Fe) MG 7-30 t} (65 Fe) MG 00:00: 00 Iron 325 Iron 325 2020-0 No 1{table BID Iron 325 (65 Fe) MG (65 Fe) MG 7-30 t} (65 Fe) MG 00:00: 00 Iron 325 Iron 325 2020-0 No 1{table BID Iron 325 (65 Fe) MG (65 Fe) MG 7-30 t} (65 Fe) MG 00:00: 00 Iron 325 Iron 325 2020-0 No 1{table BID Iron 325 (65 Fe) MG (65 Fe) MG 7-30 t} (65 Fe) MG 00:00: 00 Iron 325 Iron 325 2020-0 No 1{table BID Iron 325 (65 Fe) MG (65 Fe) MG 7-30 t} (65 Fe) MG 00:00: 00 Iron 325 Iron 325 2020-0 No 1{table BID Iron 325 (65 Fe) MG (65 Fe) MG 7-30 t} (65 Fe) MG 00:00: 00 Iron 325 Iron 325 2020-0 No 1{table BID Iron 325 (65 Fe) MG (65 Fe) MG 7-30 t} (65 Fe) MG 00:00: 00 Iron 325 Iron 325 2020-0 No 1{table BID Iron 325 (65 Fe) MG (65 Fe) MG 7-30 t} (65 Fe) MG 00:00: 00 Iron 325 Iron 325 2020-0 No 1{table BID Iron 325 (65 Fe) MG (65 Fe) MG 7-30 t} (65 Fe) MG 00:00: 00 Iron 325 Iron 325 2019-0 No 1{table BID Iron 325 (65 Fe) MG (65 Fe) MG 7-30 t} (65 Fe) MG 00:00: 00 Iron 325 Iron 325 2019-0 No 1{table BID Iron 325 (65 Fe) MG (65 Fe) MG 7-30 t} (65 Fe) MG 00:00: 00 Iron 325 Iron 325 2019-0 No 1{table BID Iron 325 (65 Fe) MG (65 Fe) MG 7-30 t} (65 Fe) MG 00:00: 00 Iron 325 Iron 325 2019-0 No 1{table BID Iron 325 (65 Fe) MG (65 Fe) MG 7-30 t} (65 Fe) MG 00:00: 00 Iron 325 Iron 325 2019-0 No 1{table BID Iron 325 (65 Fe) MG (65 Fe) MG 7-30 t} (65 Fe) MG 00:00: 00 Iron 325 Iron 325 2020-0 No 1{table BID Iron 325 (65 Fe) MG (65 Fe) MG 7-30 t} (65 Fe) MG 00:00: 00 Iron 325 Iron 325 2020-0 No 1{table BID Iron 325 (65 Fe) MG (65 Fe) MG 7-30 t} (65 Fe) MG 00:00: 00 Hydrochloro Hydrochloro Yes Seamus TAKE 1 Common thiazide thiazide [place] TABLET BY Sofie corrales MOUTH - [facility] Viagra 100 Viagra 100 No 1{table QD Viagra 100 MG MG t_as_ne MG eded} Sildenafil Sildenafil No QD Sildenafil Citrate 100 Citrate 100 Citrate MG MG 100 MG predniSONE predniSONE No QD predniSONE 10 MG 10 MG 10 MG Montelukast Montelukast No 1{table QD Montelukas Sodium 10 Sodium 10 t} t Sodium MG MG 10 MG Lipitor 20 Lipitor 20 No 1{table QD Lipitor 20 MG MG t} MG Lisinopril Lisinopril No 1{table QD Lisinopril 10 MG 10 MG t} 10 MG Azelastine- Azelastine- No 1{spray BID Azelastine Fluticasone Fluticasone _in_eac -Fluticaso 137-50 137-50 h_nostr ne 137-50 MCG/ACT MCG/ACT il} MCG/ACT Amitiza 8 Amitiza 8 No 1{capsu BID Amitiza 8 MCG MCG le_with MCG _food} Protonix 40 Protonix 40 No 1{table QD Protonix MG MG t} 40 MG Diclofenac Diclofenac No Diclofenac Sodium 75 Sodium 75 Sodium 75 MG MG MG Cyclobenzap Cyclobenzap No Cyclobenza rine HCl 10 rine HCl 10 shahid HCl MG MG 10 MG amLODIPine amLODIPine No 1{table QD amLODIPine Besylate 10 Besylate 10 t} Besylate MG MG 10 MG Lisinopril Lisinopril No 1{table QD Lisinopril 10 MG 10 MG t} 10 MG Protonix 40 Protonix 40 No 1{table QD Protonix MG MG t} 40 MG Duexis Duexis No 1{table TID Duexis 800-26.6 MG 800-26.6 MG t} 800-26.6 MG FeroSul 325 FeroSul 325 No FeroSul (65 Fe) MG (65 Fe) MG 325 (65 Fe) MG Metoprolol Metoprolol No 1{table BID Metoprolol Tartrate 50 Tartrate 50 t_with_ Tartrate MG MG food} 50 MG Tamsulosin Tamsulosin No Tamsulosin HCl 0.4 MG HCl 0.4 MG HCl 0.4 MG hydroCHLORO hydroCHLORO No 1{table QD hydroCHLOR thiazide thiazide t_in_th Othiazide 12.5 MG 12.5 MG e_morni 12.5 MG ng} Albuterol Albuterol No Albuterol Sulfate HFA Sulfate HFA Sulfate 108 (90 108 (90 HFA 108 Base) Base) (90 Base) MCG/ACT MCG/ACT MCG/ACT hydroCHLORO hydroCHLORO No 1{table QD hydroCHLOR thiazide thiazide t_in_th Othiazide 12.5 MG 12.5 MG e_morni 12.5 MG ng} Zanaflex Zanaflex No Zanaflex Tamsulosin Tamsulosin No 1{capsu QD Tamsulosin HCl 0.4 MG HCl 0.4 MG le} HCl 0.4 MG Viagra 100 Viagra 100 No 1{table QD Viagra 100 MG MG t_as_ne MG eded} Sildenafil Sildenafil No QD Sildenafil Citrate 100 Citrate 100 Citrate MG MG 100 MG predniSONE predniSONE No QD predniSONE 10 MG 10 MG 10 MG Montelukast Montelukast No 1{table QD Montelukas Sodium 10 Sodium 10 t} t Sodium MG MG 10 MG Lipitor 20 Lipitor 20 No 1{table QD Lipitor 20 MG MG t} MG Lisinopril Lisinopril No 1{table QD Lisinopril 10 MG 10 MG t} 10 MG Azelastine- Azelastine- No 1{spray BID Azelastine Fluticasone Fluticasone _in_eac -Fluticaso 137-50 137-50 h_nostr ne 137-50 MCG/ACT MCG/ACT il} MCG/ACT Amitiza 8 Amitiza 8 No 1{capsu BID Amitiza 8 MCG MCG le_with MCG _food} Protonix 40 Protonix 40 No 1{table QD Protonix MG MG t} 40 MG Diclofenac Diclofenac No Diclofenac Sodium 75 Sodium 75 Sodium 75 MG MG MG Cyclobenzap Cyclobenzap No Cyclobenza rine HCl 10 rine HCl 10 shahid HCl MG MG 10 MG amLODIPine amLODIPine No 1{table QD amLODIPine Besylate 10 Besylate 10 t} Besylate MG MG 10 MG Lisinopril Lisinopril No 1{table QD Lisinopril 10 MG 10 MG t} 10 MG Protonix 40 Protonix 40 No 1{table QD Protonix MG MG t} 40 MG Duexis Duexis No 1{table TID Duexis 800-26.6 MG 800-26.6 MG t} 800-26.6 MG Zanaflex Zanaflex No Zanaflex FeroSul 325 FeroSul 325 No FeroSul (65 Fe) MG (65 Fe) MG 325 (65 Fe) MG Viagra 100 Viagra 100 No 1{table QD Viagra 100 MG MG t_as_ne MG eded} Diclofenac Diclofenac No Diclofenac Sodium 75 Sodium 75 Sodium 75 MG MG MG Albuterol Albuterol No Albuterol Sulfate HFA Sulfate HFA Sulfate 108 (90 108 (90 HFA 108 Base) Base) (90 Base) MCG/ACT MCG/ACT MCG/ACT predniSONE predniSONE No QD predniSONE 10 MG 10 MG 10 MG Atorvastati Atorvastati No Atorvastat n Calcium n Calcium in Calcium 20 MG 20 MG 20 MG Montelukast Montelukast No 1{table QD Montelukas Sodium 10 Sodium 10 t} t Sodium MG MG 10 MG Sildenafil Sildenafil No QD Sildenafil Citrate 100 Citrate 100 Citrate MG MG 100 MG amLODIPine amLODIPine No amLODIPine Besylate 10 Besylate 10 Besylate MG MG 10 MG Lisinopril Lisinopril No 1{table QD Lisinopril 10 MG 10 MG t} 10 MG Tamsulosin Tamsulosin No 1{capsu QD Tamsulosin HCl 0.4 MG HCl 0.4 MG le} HCl 0.4 MG Duexis Duexis No 1{table TID Duexis 800-26.6 MG 800-26.6 MG t} 800-26.6 MG Metoprolol Metoprolol No Metoprolol Tartrate 50 Tartrate 50 Tartrate MG MG 50 MG Pantoprazol Pantoprazol No Pantoprazo e Sodium 40 e Sodium 40 le Sodium MG MG 40 MG Amitiza 8 Amitiza 8 No 1{capsu BID Amitiza 8 MCG MCG le_with MCG _food} Cyclobenzap Cyclobenzap No Cyclobenza rine HCl 10 rine HCl 10 shahid HCl MG MG 10 MG Protonix 40 Protonix 40 No 1{table QD Protonix MG MG t} 40 MG hydroCHLORO hydroCHLORO No 1{table QD hydroCHLOR thiazide thiazide t_in_th Othiazide 12.5 MG 12.5 MG e_morni 12.5 MG ng} Azelastine- Azelastine- No 1{spray BID Azelastine Fluticasone Fluticasone _in_eac -Fluticaso 137-50 137-50 h_nostr ne 137-50 MCG/ACT MCG/ACT il} MCG/ACT Tamsulosin Tamsulosin No Tamsulosin HCl 0.4 MG HCl 0.4 MG HCl 0.4 MG amLODIPine amLODIPine No amLODIPine Besylate 10 Besylate 10 Besylate MG MG 10 MG Diclofenac Diclofenac No Diclofenac Sodium 75 Sodium 75 Sodium 75 MG MG MG amLODIPine amLODIPine No 1{table QD amLODIPine Besylate 10 Besylate 10 t} Besylate MG MG 10 MG Cyclobenzap Cyclobenzap No Cyclobenza rine HCl 10 rine HCl 10 shahid HCl MG MG 10 MG hydroCHLORO hydroCHLORO No 1{table QD hydroCHLOR thiazide thiazide t_in_th Othiazide 12.5 MG 12.5 MG e_morni 12.5 MG ng} predniSONE predniSONE No QD predniSONE 10 MG 10 MG 10 MG Lisinopril Lisinopril No 1{table QD Lisinopril 10 MG 10 MG t} 10 MG Azelastine- Azelastine- No 1{spray BID Azelastine Fluticasone Fluticasone _in_eac -Fluticaso 137-50 137-50 h_nostr ne 137-50 MCG/ACT MCG/ACT il} MCG/ACT hydroCHLORO hydroCHLORO No 1{table QD hydroCHLOR thiazide thiazide t_in_th Othiazide 12.5 MG 12.5 MG e_morni 12.5 MG ng} Duexis Duexis No 1{table TID Duexis 800-26.6 MG 800-26.6 MG t} 800-26.6 MG Protonix 40 Protonix 40 No 1{table QD Protonix MG MG t} 40 MG Protonix 40 Protonix 40 No 1{table QD Protonix MG MG t} 40 MG Zanaflex Zanaflex No Zanaflex Amitiza 8 Amitiza 8 No 1{capsu BID Amitiza 8 MCG MCG le_with MCG _food} Metoprolol Metoprolol No 1{table BID Metoprolol Tartrate 50 Tartrate 50 t_with_ Tartrate MG MG food} 50 MG Tamsulosin Tamsulosin No 1{capsu QD Tamsulosin HCl 0.4 MG HCl 0.4 MG le} HCl 0.4 MG Viagra 100 Viagra 100 No 1{table QD Viagra 100 MG MG t_as_ne MG eded} Metoprolol Metoprolol No Metoprolol Tartrate 50 Tartrate 50 Tartrate MG MG 50 MG Pantoprazol Pantoprazol No Pantoprazo e Sodium 40 e Sodium 40 le Sodium MG MG 40 MG Sildenafil Sildenafil No QD Sildenafil Citrate 100 Citrate 100 Citrate MG MG 100 MG Lipitor 20 Lipitor 20 No 1{table QD Lipitor 20 MG MG t} MG Atorvastati Atorvastati No Atorvastat n Calcium n Calcium in Calcium 20 MG 20 MG 20 MG FeroSul 325 FeroSul 325 No FeroSul (65 Fe) MG (65 Fe) MG 325 (65 Fe) MG Lisinopril Lisinopril No 1{table QD Lisinopril 10 MG 10 MG t} 10 MG Albuterol Albuterol No Albuterol Sulfate HFA Sulfate HFA Sulfate 108 (90 108 (90 HFA 108 Base) Base) (90 Base) MCG/ACT MCG/ACT MCG/ACT Tamsulosin Tamsulosin No Tamsulosin HCl 0.4 MG HCl 0.4 MG HCl 0.4 MG Montelukast Montelukast No 1{table QD Montelukas Sodium 10 Sodium 10 t} t Sodium MG MG 10 MG Atorvastati Atorvastati No Atorvastat n Calcium n Calcium in Calcium 20 MG 20 MG 20 MG predniSONE predniSONE No QD predniSONE 10 MG 10 MG 10 MG Tamsulosin Tamsulosin No Tamsulosin HCl 0.4 MG HCl 0.4 MG HCl 0.4 MG Lisinopril Lisinopril No Lisinopril 10 MG 10 MG 10 MG Duexis Duexis No 1{table TID Duexis 800-26.6 MG 800-26.6 MG t} 800-26.6 MG Zanaflex Zanaflex No Zanaflex Montelukast Montelukast No 1{table QD Montelukas Sodium 10 Sodium 10 t} t Sodium MG MG 10 MG Albuterol Albuterol No Albuterol Sulfate HFA Sulfate HFA Sulfate 108 (90 108 (90 HFA 108 Base) Base) (90 Base) MCG/ACT MCG/ACT MCG/ACT FeroSul 325 FeroSul 325 No FeroSul (65 Fe) MG (65 Fe) MG 325 (65 Fe) MG Cyclobenzap Cyclobenzap No Cyclobenza rine HCl 10 rine HCl 10 shahid HCl MG MG 10 MG Sildenafil Sildenafil No QD Sildenafil Citrate 100 Citrate 100 Citrate MG MG 100 MG Metoprolol Metoprolol No Metoprolol Tartrate 50 Tartrate 50 Tartrate MG MG 50 MG Azelastine- Azelastine- No 1{spray BID Azelastine Fluticasone Fluticasone _in_eac -Fluticaso 137-50 137-50 h_nostr ne 137-50 MCG/ACT MCG/ACT il} MCG/ACT Protonix 40 Protonix 40 No 1{table QD Protonix MG MG t} 40 MG Amitiza 8 Amitiza 8 No 1{capsu BID Amitiza 8 MCG MCG le_with MCG _food} Diclofenac Diclofenac No Diclofenac Sodium 75 Sodium 75 Sodium 75 MG MG MG amLODIPine amLODIPine No amLODIPine Besylate 10 Besylate 10 Besylate MG MG 10 MG Viagra 100 Viagra 100 No 1{table QD Viagra 100 MG MG t_as_ne MG eded} hydroCHLORO hydroCHLORO No hydroCHLOR thiazide thiazide Othiazide 12.5 MG 12.5 MG 12.5 MG Pantoprazol Pantoprazol No Pantoprazo e Sodium 40 e Sodium 40 le Sodium MG MG 40 MG Atorvastati Atorvastati No Atorvastat n Calcium n Calcium in Calcium 20 MG 20 MG 20 MG predniSONE predniSONE No QD predniSONE 10 MG 10 MG 10 MG Lisinopril Lisinopril No Lisinopril 10 MG 10 MG 10 MG Duexis Duexis No 1{table TID Duexis 800-26.6 MG 800-26.6 MG t} 800-26.6 MG Zanaflex Zanaflex No Zanaflex Tamsulosin Tamsulosin No Tamsulosin HCl 0.4 MG HCl 0.4 MG HCl 0.4 MG Montelukast Montelukast No 1{table QD Montelukas Sodium 10 Sodium 10 t} t Sodium MG MG 10 MG Albuterol Albuterol No Albuterol Sulfate HFA Sulfate HFA Sulfate 108 (90 108 (90 HFA 108 Base) Base) (90 Base) MCG/ACT MCG/ACT MCG/ACT FeroSul 325 FeroSul 325 No FeroSul (65 Fe) MG (65 Fe) MG 325 (65 Fe) MG Cyclobenzap Cyclobenzap No Cyclobenza rine HCl 10 rine HCl 10 shahid HCl MG MG 10 MG Sildenafil Sildenafil No QD Sildenafil Citrate 100 Citrate 100 Citrate MG MG 100 MG Metoprolol Metoprolol No Metoprolol Tartrate 50 Tartrate 50 Tartrate MG MG 50 MG Azelastine- Azelastine- No 1{spray BID Azelastine Fluticasone Fluticasone _in_eac -Fluticaso 137-50 137-50 h_nostr ne 137-50 MCG/ACT MCG/ACT il} MCG/ACT amLODIPine amLODIPine No amLODIPine Besylate 10 Besylate 10 Besylate MG MG 10 MG Amitiza 8 Amitiza 8 No 1{capsu BID Amitiza 8 MCG MCG le_with MCG _food} Diclofenac Diclofenac No Diclofenac Sodium 75 Sodium 75 Sodium 75 MG MG MG Protonix 40 Protonix 40 No 1{table QD Protonix MG MG t} 40 MG Viagra 100 Viagra 100 No 1{table QD Viagra 100 MG MG t_as_ne MG eded} hydroCHLORO hydroCHLORO No hydroCHLOR thiazide thiazide Othiazide 12.5 MG 12.5 MG 12.5 MG Pantoprazol Pantoprazol No Pantoprazo e Sodium 40 e Sodium 40 le Sodium MG MG 40 MG hydroCHLORO hydroCHLORO No hydroCHLOR thiazide thiazide Othiazide 12.5 MG 12.5 MG 12.5 MG Sildenafil Sildenafil No QD Sildenafil Citrate 100 Citrate 100 Citrate MG MG 100 MG Diclofenac Diclofenac No Diclofenac Sodium 75 Sodium 75 Sodium 75 MG MG MG predniSONE predniSONE No QD predniSONE 10 MG 10 MG 10 MG Metoprolol Metoprolol No Metoprolol Tartrate 50 Tartrate 50 Tartrate MG MG 50 MG Tamsulosin Tamsulosin No Tamsulosin HCl 0.4 MG HCl 0.4 MG HCl 0.4 MG Duexis Duexis No 1{table TID Duexis 800-26.6 MG 800-26.6 MG t} 800-26.6 MG Atorvastati Atorvastati No Atorvastat n Calcium n Calcium in Calcium 20 MG 20 MG 20 MG amLODIPine amLODIPine No amLODIPine Besylate 10 Besylate 10 Besylate MG MG 10 MG Montelukast Montelukast No 1{table QD Montelukas Sodium 10 Sodium 10 t} t Sodium MG MG 10 MG Viagra 100 Viagra 100 No 1{table QD Viagra 100 MG MG t_as_ne MG eded} Pantoprazol Pantoprazol No Pantoprazo e Sodium 40 e Sodium 40 le Sodium MG MG 40 MG Amitiza 8 Amitiza 8 No 1{capsu BID Amitiza 8 MCG MCG le_with MCG _food} Lisinopril Lisinopril No Lisinopril 10 MG 10 MG 10 MG FeroSul 325 FeroSul 325 No FeroSul (65 Fe) MG (65 Fe) MG 325 (65 Fe) MG Azelastine- Azelastine- No 1{spray BID Azelastine Fluticasone Fluticasone _in_eac -Fluticaso 137-50 137-50 h_nostr ne 137-50 MCG/ACT MCG/ACT il} MCG/ACT Cyclobenzap Cyclobenzap No Cyclobenza rine HCl 10 rine HCl 10 shahid HCl MG MG 10 MG Zanaflex Zanaflex No Zanaflex Protonix 40 Protonix 40 No 1{table QD Protonix MG MG t} 40 MG Albuterol Albuterol No Albuterol Sulfate HFA Sulfate HFA Sulfate 108 (90 108 (90 HFA 108 Base) Base) (90 Base) MCG/ACT MCG/ACT MCG/ACT hydroCHLORO hydroCHLORO No hydroCHLOR thiazide thiazide Othiazide 12.5 MG 12.5 MG 12.5 MG Sildenafil Sildenafil No QD Sildenafil Citrate 100 Citrate 100 Citrate MG MG 100 MG Diclofenac Diclofenac No Diclofenac Sodium 75 Sodium 75 Sodium 75 MG MG MG predniSONE predniSONE No QD predniSONE 10 MG 10 MG 10 MG Metoprolol Metoprolol No Metoprolol Tartrate 50 Tartrate 50 Tartrate MG MG 50 MG Tamsulosin Tamsulosin No Tamsulosin HCl 0.4 MG HCl 0.4 MG HCl 0.4 MG Duexis Duexis No 1{table TID Duexis 800-26.6 MG 800-26.6 MG t} 800-26.6 MG Atorvastati Atorvastati No Atorvastat n Calcium n Calcium in Calcium 20 MG 20 MG 20 MG No known No [facility] amLODIPine No amLODIPine Besylate 10 Besylate 10 Besylate MG MG 10 MG Montelukast Montelukast No 1{table QD Montelukas Sodium 10 Sodium 10 t} t Sodium MG MG 10 MG Viagra 100 Viagra 100 No 1{table QD Viagra 100 MG MG t_as_ne MG eded} Pantoprazol Pantoprazol No Pantoprazo e Sodium 40 e Sodium 40 le Sodium MG MG 40 MG Amitiza 8 Amitiza 8 No 1{capsu BID Amitiza 8 MCG MCG le_with MCG _food} Lisinopril Lisinopril No Lisinopril 10 MG 10 MG 10 MG FeroSul 325 FeroSul 325 No FeroSul (65 Fe) MG (65 Fe) MG 325 (65 Fe) MG Azelastine- Azelastine- No 1{spray BID Azelastine Fluticasone Fluticasone _in_eac -Fluticaso 137-50 137-50 h_nostr ne 137-50 MCG/ACT MCG/ACT il} MCG/ACT Cyclobenzap Cyclobenzap No Cyclobenza rine HCl 10 rine HCl 10 shahid HCl MG MG 10 MG Zanaflex Zanaflex No Zanaflex No known No [facility] medications [facility] Protonix 40 Protonix 40 No 1{table QD Protonix MG MG t} 40 MG Albuterol Albuterol No Albuterol Sulfate HFA Sulfate HFA Sulfate 108 (90 108 (90 HFA 108 Base) Base) (90 Base) MCG/ACT MCG/ACT MCG/ACT Metoprolol Metoprolol No 1{table BID Metoprolol Tartrate 50 Tartrate 50 t_with_ Tartrate MG MG food} 50 MG amLODIPine amLODIPine No 1{table QD amLODIPine Besylate 10 Besylate 10 t} Besylate MG MG 10 MG Amitiza 8 Amitiza 8 No 1{capsu BID Amitiza 8 MCG MCG le_with MCG _food} amLODIPine amLODIPine No amLODIPine Besylate 10 Besylate 10 Besylate MG MG 10 MG Lipitor 20 Lipitor 20 No 1{table QD Lipitor 20 MG MG t} MG Cyclobenzap Cyclobenzap No Cyclobenza rine HCl 10 rine HCl 10 shahid HCl MG MG 10 MG Sildenafil Sildenafil No QD Sildenafil Citrate 100 Citrate 100 Citrate MG MG 100 MG Protonix 40 Protonix 40 No 1{table QD Protonix MG MG t} 40 MG No known No [facility] medications [facility] Pantoprazol Pantoprazol No Pantoprazo e Sodium 40 e Sodium 40 le Sodium MG MG 40 MG Atorvastati Atorvastati No Atorvastat n Calcium n Calcium in Calcium 20 MG 20 MG 20 MG Azelastine- Azelastine- No 1{spray BID Azelastine Fluticasone Fluticasone _in_eac -Fluticaso 137-50 137-50 h_nostr ne 137-50 MCG/ACT MCG/ACT il} MCG/ACT hydroCHLORO hydroCHLORO No 1{table QD hydroCHLOR thiazide thiazide t_in_th Othiazide 12.5 MG 12.5 MG e_morni 12.5 MG ng} Protonix 40 Protonix 40 No 1{table QD Protonix MG MG t} 40 MG hydroCHLORO hydroCHLORO No hydroCHLOR thiazide thiazide Othiazide 12.5 MG 12.5 MG 12.5 MG Lisinopril Lisinopril No Lisinopril 10 MG 10 MG 10 MG Tamsulosin Tamsulosin No 1{capsu QD Tamsulosin HCl 0.4 MG HCl 0.4 MG le} HCl 0.4 MG Metoprolol Metoprolol No Metoprolol Tartrate 50 Tartrate 50 Tartrate MG MG 50 MG Albuterol Albuterol No Albuterol Sulfate HFA Sulfate HFA Sulfate 108 (90 108 (90 HFA 108 Base) Base) (90 Base) MCG/ACT MCG/ACT MCG/ACT No known No [facility] Lisinopril Lisinopril No 1{table QD Lisinopril 10 MG 10 MG t} 10 MG Metoprolol Metoprolol No 1{table BID Metoprolol Tartrate 50 Tartrate 50 t_with_ Tartrate MG MG food} 50 MG Azelastine- Azelastine- No 1{spray BID Azelastine Fluticasone Fluticasone _in_eac -Fluticaso 137-50 137-50 h_nostr ne 137-50 MCG/ACT MCG/ACT il} MCG/ACT amLODIPine amLODIPine No 1{table QD amLODIPine Besylate 10 Besylate 10 t} Besylate MG MG 10 MG Albuterol Albuterol No Albuterol Sulfate HFA Sulfate HFA Sulfate 108 (90 108 (90 HFA 108 Base) Base) (90 Base) MCG/ACT MCG/ACT MCG/ACT Pantoprazol Pantoprazol No Pantoprazo e Sodium 40 e Sodium 40 le Sodium MG MG 40 MG hydroCHLORO hydroCHLORO No hydroCHLOR thiazide thiazide Othiazide 12.5 MG 12.5 MG 12.5 MG Atorvastati Atorvastati No Atorvastat n Calcium n Calcium in Calcium 20 MG 20 MG 20 MG Protonix 40 Protonix 40 No 1{table QD Protonix MG MG t} 40 MG hydroCHLORO hydroCHLORO No 1{table QD hydroCHLOR thiazide thiazide t_in_th Othiazide 12.5 MG 12.5 MG e_morni 12.5 MG ng} No known No [facility] Protonix 40 Protonix 40 No 1{table QD Protonix MG MG t} 40 MG Tamsulosin Tamsulosin No 1{capsu QD Tamsulosin HCl 0.4 MG HCl 0.4 MG le} HCl 0.4 MG Cyclobenzap Cyclobenzap No Cyclobenza rine HCl 10 rine HCl 10 shahid HCl MG MG 10 MG amLODIPine amLODIPine No amLODIPine Besylate 10 Besylate 10 Besylate MG MG 10 MG Metoprolol Metoprolol No Metoprolol Tartrate 50 Tartrate 50 Tartrate MG MG 50 MG Amitiza 8 Amitiza 8 No 1{capsu BID Amitiza 8 MCG MCG le_with MCG _food} Lisinopril Lisinopril No 1{table QD Lisinopril 10 MG 10 MG t} 10 MG Lisinopril Lisinopril No Lisinopril 10 MG 10 MG 10 MG Sildenafil Sildenafil No QD Sildenafil Citrate 100 Citrate 100 Citrate MG MG 100 MG Lipitor 20 Lipitor 20 No 1{table QD Lipitor 20 MG MG t} MG No known No [facility] Metoprolol Metoprolol No 1{table BID Metoprolol Tartrate 50 Tartrate 50 t_with_ Tartrate MG MG food} 50 MG Azelastine- Azelastine- No 1{spray BID Azelastine Fluticasone Fluticasone _in_eac -Fluticaso 137-50 137-50 h_nostr ne 137-50 MCG/ACT MCG/ACT il} MCG/ACT amLODIPine amLODIPine No 1{table QD amLODIPine Besylate 10 Besylate 10 t} Besylate MG MG 10 MG Albuterol Albuterol No Albuterol Sulfate HFA Sulfate HFA Sulfate 108 (90 108 (90 HFA 108 Base) Base) (90 Base) MCG/ACT MCG/ACT MCG/ACT Atorvastati Atorvastati No Atorvastat n Calcium n Calcium in Calcium 20 MG 20 MG 20 MG hydroCHLORO hydroCHLORO No hydroCHLOR thiazide thiazide Othiazide 12.5 MG 12.5 MG 12.5 MG Protonix 40 Protonix 40 No 1{table QD Protonix MG MG t} 40 MG Tamsulosin Tamsulosin No 1{capsu QD Tamsulosin HCl 0.4 MG HCl 0.4 MG le} HCl 0.4 MG hydroCHLORO hydroCHLORO No 1{table QD hydroCHLOR thiazide thiazide t_in_th Othiazide 12.5 MG 12.5 MG e_morni 12.5 MG ng} Protonix 40 Protonix 40 No 1{table QD Protonix MG MG t} 40 MG Pantoprazol Pantoprazol No Pantoprazo e Sodium 40 e Sodium 40 le Sodium MG MG 40 MG Sildenafil Sildenafil No QD Sildenafil Citrate 100 Citrate 100 Citrate MG MG 100 MG Cyclobenzap Cyclobenzap No Cyclobenza rine HCl 10 rine HCl 10 shahid HCl MG MG 10 MG amLODIPine amLODIPine No amLODIPine Besylate 10 Besylate 10 Besylate MG MG 10 MG Amitiza 8 Amitiza 8 No 1{capsu BID Amitiza 8 MCG MCG le_with MCG _food} Lisinopril Lisinopril No 1{table QD Lisinopril 10 MG 10 MG t} 10 MG Lisinopril Lisinopril No Lisinopril 10 MG 10 MG 10 MG Metoprolol Metoprolol No Metoprolol Tartrate 50 Tartrate 50 Tartrate MG MG 50 MG Lipitor 20 Lipitor 20 No 1{table QD Lipitor 20 MG MG t} MG Metoprolol Metoprolol No 1{table BID Metoprolol Tartrate 50 Tartrate 50 t_with_ Tartrate MG MG food} 50 MG Azelastine- Azelastine- No 1{spray BID Azelastine Fluticasone Fluticasone _in_eac -Fluticaso 137-50 137-50 h_nostr ne 137-50 MCG/ACT MCG/ACT il} MCG/ACT amLODIPine amLODIPine No 1{table QD amLODIPine Besylate 10 Besylate 10 t} Besylate MG MG 10 MG Albuterol Albuterol No Albuterol Sulfate HFA Sulfate HFA Sulfate 108 (90 108 (90 HFA 108 Base) Base) (90 Base) MCG/ACT MCG/ACT MCG/ACT Atorvastati Atorvastati No Atorvastat n Calcium n Calcium in Calcium 20 MG 20 MG 20 MG hydroCHLORO hydroCHLORO No hydroCHLOR thiazide thiazide Othiazide 12.5 MG 12.5 MG 12.5 MG Protonix 40 Protonix 40 No 1{table QD Protonix MG MG t} 40 MG Tamsulosin Tamsulosin No 1{capsu QD Tamsulosin HCl 0.4 MG HCl 0.4 MG le} HCl 0.4 MG hydroCHLORO hydroCHLORO No 1{table QD hydroCHLOR thiazide thiazide t_in_th Othiazide 12.5 MG 12.5 MG e_morni 12.5 MG ng} Protonix 40 Protonix 40 No 1{table QD Protonix MG MG t} 40 MG Pantoprazol Pantoprazol No Pantoprazo e Sodium 40 e Sodium 40 le Sodium MG MG 40 MG Sildenafil Sildenafil No QD Sildenafil Citrate 100 Citrate 100 Citrate MG MG 100 MG Cyclobenzap Cyclobenzap No Cyclobenza rine HCl 10 rine HCl 10 shaihd HCl MG MG 10 MG amLODIPine amLODIPine No amLODIPine Besylate 10 Besylate 10 Besylate MG MG 10 MG Amitiza 8 Amitiza 8 No 1{capsu BID Amitiza 8 MCG MCG le_with MCG _food} Lisinopril Lisinopril No 1{table QD Lisinopril 10 MG 10 MG t} 10 MG Lisinopril Lisinopril No Lisinopril 10 MG 10 MG 10 MG Metoprolol Metoprolol No Metoprolol Tartrate 50 Tartrate 50 Tartrate MG MG 50 MG Lipitor 20 Lipitor 20 No 1{table QD Lipitor 20 MG MG t} MG Lisinopril Lisinopril No Lisinopril 10 MG 10 MG 10 MG Albuterol Albuterol No Albuterol Sulfate HFA Sulfate HFA Sulfate 108 (90 108 (90 HFA 108 Base) Base) (90 Base) MCG/ACT MCG/ACT MCG/ACT hydroCHLORO hydroCHLORO No hydroCHLOR thiazide thiazide Othiazide 12.5 MG 12.5 MG 12.5 MG Pantoprazol Pantoprazol No Pantoprazo e Sodium 40 e Sodium 40 le Sodium MG MG 40 MG amLODIPine amLODIPine No 1{table QD amLODIPine Besylate 10 Besylate 10 t} Besylate MG MG 10 MG Sildenafil Sildenafil No QD Sildenafil Citrate 100 Citrate 100 Citrate MG MG 100 MG amLODIPine amLODIPine No amLODIPine Besylate 10 Besylate 10 Besylate MG MG 10 MG Tamsulosin Tamsulosin No 1{capsu QD Tamsulosin HCl 0.4 MG HCl 0.4 MG le} HCl 0.4 MG Atorvastati Atorvastati No Atorvastat n Calcium n Calcium in Calcium 20 MG 20 MG 20 MG Protonix 40 Protonix 40 No 1{table QD Protonix MG MG t} 40 MG Amitiza 8 Amitiza 8 No 1{capsu BID Amitiza 8 MCG MCG le_with MCG _food} Protonix 40 Protonix 40 No 1{table QD Protonix MG MG t} 40 MG Metoprolol Metoprolol No Metoprolol Tartrate 50 Tartrate 50 Tartrate MG MG 50 MG Lipitor 20 Lipitor 20 No 1{table QD Lipitor 20 MG MG t} MG Cyclobenzap Cyclobenzap No Cyclobenza rine HCl 10 rine HCl 10 shahid HCl MG MG 10 MG hydroCHLORO hydroCHLORO No 1{table QD hydroCHLOR thiazide thiazide t_in_th Othiazide 12.5 MG 12.5 MG e_morni 12.5 MG ng} Azelastine- Azelastine- No 1{spray BID Azelastine Fluticasone Fluticasone _in_eac -Fluticaso 137-50 137-50 h_nostr ne 137-50 MCG/ACT MCG/ACT il} MCG/ACT Atorvastati Atorvastati No Atorvastat n Calcium n Calcium in Calcium 20 MG 20 MG 20 MG hydroCHLORO hydroCHLORO No 1{table QD hydroCHLOR thiazide thiazide t_in_th Othiazide 12.5 MG 12.5 MG e_morni 12.5 MG ng} Metoprolol Metoprolol No 1{table BID Metoprolol Tartrate 50 Tartrate 50 t_with_ Tartrate MG MG food} 50 MG Lisinopril Lisinopril No 1{table QD Lisinopril 10 MG 10 MG t} 10 MG Tamsulosin Tamsulosin No 1{capsu QD Tamsulosin HCl 0.4 MG HCl 0.4 MG le} HCl 0.4 MG Metoprolol Metoprolol No Metoprolol Tartrate 50 Tartrate 50 Tartrate MG MG 50 MG Sildenafil Sildenafil No QD Sildenafil Citrate 100 Citrate 100 Citrate MG MG 100 MG Albuterol Albuterol No Albuterol Sulfate HFA Sulfate HFA Sulfate 108 (90 108 (90 HFA 108 Base) Base) (90 Base) MCG/ACT MCG/ACT MCG/ACT Protonix 40 Protonix 40 No 1{table QD Protonix MG MG t} 40 MG Amitiza 8 Amitiza 8 No 1{capsu BID Amitiza 8 MCG MCG le_with MCG _food} Lipitor 20 Lipitor 20 No 1{table QD Lipitor 20 MG MG t} MG Azelastine- Azelastine- No 1{spray BID Azelastine Fluticasone Fluticasone _in_eac -Fluticaso 137-50 137-50 h_nostr ne 137-50 MCG/ACT MCG/ACT il} MCG/ACT Protonix 40 Protonix 40 No 1{table QD Protonix MG MG t} 40 MG Lisinopril Lisinopril No Lisinopril 10 MG 10 MG 10 MG hydroCHLORO hydroCHLORO No hydroCHLOR thiazide thiazide Othiazide 12.5 MG 12.5 MG 12.5 MG amLODIPine amLODIPine No 1{table QD amLODIPine Besylate 10 Besylate 10 t} Besylate MG MG 10 MG Cyclobenzap Cyclobenzap No Cyclobenza rine HCl 10 rine HCl 10 shahid HCl MG MG 10 MG amLODIPine amLODIPine No amLODIPine Besylate 10 Besylate 10 Besylate MG MG 10 MG Pantoprazol Pantoprazol No Pantoprazo e Sodium 40 e Sodium 40 le Sodium MG MG 40 MG Atorvastati Atorvastati No Atorvastat n Calcium n Calcium in Calcium 20 MG 20 MG 20 MG hydroCHLORO hydroCHLORO No 1{table QD hydroCHLOR thiazide thiazide t_in_th Othiazide 12.5 MG 12.5 MG e_morni 12.5 MG ng} Metoprolol Metoprolol No 1{table BID Metoprolol Tartrate 50 Tartrate 50 t_with_ Tartrate MG MG food} 50 MG Lisinopril Lisinopril No 1{table QD Lisinopril 10 MG 10 MG t} 10 MG Tamsulosin Tamsulosin No 1{capsu QD Tamsulosin HCl 0.4 MG HCl 0.4 MG le} HCl 0.4 MG Metoprolol Metoprolol No Metoprolol Tartrate 50 Tartrate 50 Tartrate MG MG 50 MG Sildenafil Sildenafil No QD Sildenafil Citrate 100 Citrate 100 Citrate MG MG 100 MG Albuterol Albuterol No Albuterol Sulfate HFA Sulfate HFA Sulfate 108 (90 108 (90 HFA 108 Base) Base) (90 Base) MCG/ACT MCG/ACT MCG/ACT Protonix 40 Protonix 40 No 1{table QD Protonix MG MG t} 40 MG Amitiza 8 Amitiza 8 No 1{capsu BID Amitiza 8 MCG MCG le_with MCG _food} Lipitor 20 Lipitor 20 No 1{table QD Lipitor 20 MG MG t} MG Azelastine- Azelastine- No 1{spray BID Azelastine Fluticasone Fluticasone _in_eac -Fluticaso 137-50 137-50 h_nostr ne 137-50 MCG/ACT MCG/ACT il} MCG/ACT Protonix 40 Protonix 40 No 1{table QD Protonix MG MG t} 40 MG Lisinopril Lisinopril No Lisinopril 10 MG 10 MG 10 MG hydroCHLORO hydroCHLORO No hydroCHLOR thiazide thiazide Othiazide 12.5 MG 12.5 MG 12.5 MG amLODIPine amLODIPine No 1{table QD amLODIPine Besylate 10 Besylate 10 t} Besylate MG MG 10 MG Cyclobenzap Cyclobenzap No Cyclobenza rine HCl 10 rine HCl 10 shahid HCl MG MG 10 MG amLODIPine amLODIPine No amLODIPine Besylate 10 Besylate 10 Besylate MG MG 10 MG Pantoprazol Pantoprazol No Pantoprazo e Sodium 40 e Sodium 40 le Sodium MG MG 40 MG Lisinopril Lisinopril No 1{table QD Lisinopril 10 MG 10 MG t} 10 MG hydroCHLORO hydroCHLORO No 1{table QD hydroCHLOR thiazide thiazide t_in_th Othiazide 12.5 MG 12.5 MG e_morni 12.5 MG ng} Amitiza 8 Amitiza 8 No 1{capsu BID Amitiza 8 MCG MCG le_with MCG _food} Viagra 100 Viagra 100 No 1{table QD Viagra 100 MG MG t_as_ne MG eded} Protonix 40 Protonix 40 No 1{table QD Protonix MG MG t} 40 MG Azelastine- Azelastine- No 1{spray BID Azelastine Fluticasone Fluticasone _in_eac -Fluticaso 137-50 137-50 h_nostr ne 137-50 MCG/ACT MCG/ACT il} MCG/ACT Montelukast Montelukast No 1{table QD Montelukas Sodium 10 Sodium 10 t} t Sodium MG MG 10 MG predniSONE predniSONE No QD predniSONE 10 MG 10 MG 10 MG Protonix 40 Protonix 40 No 1{table QD Protonix MG MG t} 40 MG Cyclobenzap Cyclobenzap No Cyclobenza rine HCl 10 rine HCl 10 shahid HCl MG MG 10 MG Lipitor 20 Lipitor 20 No 1{table QD Lipitor 20 MG MG t} MG hydroCHLORO hydroCHLORO No 1{table QD hydroCHLOR thiazide thiazide t_in_th Othiazide 12.5 MG 12.5 MG e_morni 12.5 MG ng} amLODIPine amLODIPine No 1{table QD amLODIPine Besylate 10 Besylate 10 t} Besylate MG MG 10 MG FeroSul 325 FeroSul 325 No FeroSul (65 Fe) MG (65 Fe) MG 325 (65 Fe) MG Duexis Duexis No 1{table TID Duexis 800-26.6 MG 800-26.6 MG t} 800-26.6 MG Albuterol Albuterol No Albuterol Sulfate HFA Sulfate HFA Sulfate 108 (90 108 (90 HFA 108 Base) Base) (90 Base) MCG/ACT MCG/ACT MCG/ACT Tamsulosin Tamsulosin No 1{capsu QD Tamsulosin HCl 0.4 MG HCl 0.4 MG le} HCl 0.4 MG Diclofenac Diclofenac No Diclofenac Sodium 75 Sodium 75 Sodium 75 MG MG MG Lisinopril Lisinopril No 1{table QD Lisinopril 10 MG 10 MG t} 10 MG Metoprolol Metoprolol No 1{table BID Metoprolol Tartrate 50 Tartrate 50 t_with_ Tartrate MG MG food} 50 MG FeroSul 325 FeroSul 325 No FeroSul (65 Fe) MG (65 Fe) MG 325 (65 Fe) MG Metoprolol Metoprolol No 1{table BID Metoprolol Tartrate 50 Tartrate 50 t_with_ Tartrate MG MG food} 50 MG Tamsulosin Tamsulosin No Tamsulosin HCl 0.4 MG HCl 0.4 MG HCl 0.4 MG hydroCHLORO hydroCHLORO No 1{table QD hydroCHLOR thiazide thiazide t_in_th Othiazide 12.5 MG 12.5 MG e_morni 12.5 MG ng} Albuterol Albuterol No Albuterol Sulfate HFA Sulfate HFA Sulfate 108 (90 108 (90 HFA 108 Base) Base) (90 Base) MCG/ACT MCG/ACT MCG/ACT hydroCHLORO hydroCHLORO No 1{table QD hydroCHLOR thiazide thiazide t_in_th Othiazide 12.5 MG 12.5 MG e_morni 12.5 MG ng} Zanaflex Zanaflex No Zanaflex Tamsulosin Tamsulosin No 1{capsu QD Tamsulosin HCl 0.4 MG HCl 0.4 MG le} HCl 0.4 MG Immunizations Ordered Immunization Filled Immunization Date Status Commen ts Source Name Name Flucelvax - single Flucelvax - single 2022-01-22 Completed [facility] dose syringe 15:58:00 [facility] Flucelvax - single Flucelvax - single 2022-01-22 Completed [facility] dose syringe dose syringe 15:58:00 [facility] Afluria Afluria 2020-12-28 Completed [facility] 11:17:00 [facility] Afluria Afluria 2020-12-28 Completed [facility] 11:17:00 [facility] Afluria Afluria 2020-12-28 Completed [facility] 11:17:00 [facility] Afluria Afluria 2020-12-28 Completed [facility] 11:17:00 [facility] Afluria Afluria 2020-12-28 Completed [facility] 11:17:00 [facility] Afluria Afluria 2020-12-28 Completed [facility] 11:17:00 [facility] Afluria Afluria 2020-12-28 Completed [facility] 11:17:00 [facility] Afluria Afluria 2020-12-28 Completed [facility] 11:17:00 [facility] Afluria Afluria 2020-12-28 Completed [facility] 11:17:00 [facility] Afluria Afluria 2020-12-28 Completed [facility] 11:17:00 [facility] Afluria Afluria 2020-12-28 Completed [facility] 11:17:00 [facility] Afluria Afluria 2020-12-28 Completed [facility] 11:17:00 [facility] Afluria Afluria 2020-12-28 Completed [facility] 11:17:00 [facility] Afluria Afluria 2020-12-28 Completed [facility] 11:17:00 - [facility] Afluria Afluria 2020-12-28 Completed [facility] 11:17:00 [facility] Afluria single dose Afluria single dose 2020-03-30 Completed [facility] 10:02:00 - [facility] Afluria single dose Afluria single dose 2020-03-30 Completed [facility] 10:02:00 - [facility] Afluria single dose Afluria single dose 2020-03-30 Completed [facility] 10:02:00 [facility] Afluria single dose Afluria single dose 2020-03-30 Completed [facility] 10:02:00 - [facility] Afluria single dose Afluria single dose 2020-03-30 Completed [facility] 10:02:00 - [facility] Afluria single dose Afluria single dose 2020-03-30 Completed [facility] 10:02:00 - [facility] Afluria single dose Afluria single dose 2020-03-30 Completed [facility] 10:02:00 [facility] Afluria single dose Afluria single dose 2020-03-30 Completed [facility] 10:02:00 [facility] Afluria single dose Afluria single dose 2020-03-30 Completed [facility] 10:02:00 [facility] Afluria single dose Afluria single dose 2020-03-30 Completed [facility] 10:02:00 - [facility] Afluria single dose Afluria single dose 2020-03-30 Completed [facility] 10:02:00 [facility] Afluria single dose Afluria single dose 2020-03-30 Completed [facility] 10:02:00 [facility] Afluria single dose Afluria single dose 2020-03-30 Completed [facility] 10:02:00 [facility] Afluria single dose Afluria single dose 2020-03-30 Completed [facility] 10:02:00 [facility] Afluria single dose Afluria single dose 2020-03-30 Completed [facility] 10:02:00 [facility] Afluria single dose Afluria single dose 2020-03-30 Completed [facility] 10:02:00 [facility] Afluria single dose Afluria single dose 2019-12-16 Completed [facility] 11:26:00 [facility] Afluria single dose Afluria single dose 2019-12-16 Completed [facility] 11:26:00 [facility] Afluria single dose Afluria single dose 2019-12-16 Completed [facility] 11:26:00 [facility] Afluria single dose Afluria single dose 2019-12-16 Completed [facility] 11:26:00 [facility] Afluria single dose Afluria single dose 2019-12-16 Completed [facility] 11:26:00 [facility] Afluria single dose Afluria single dose 2019-12-16 Completed [facility] 11:26:00 [facility] Afluria single dose Afluria single dose 2019-12-16 Completed [facility] 11:26:00 [facility] Afluria single dose Afluria single dose 2019-12-16 Completed [facility] 11:26:00 [facility] Afluria single dose Afluria single dose 2019-12-16 Completed [facility] 11:26:00 [facility] Afluria single dose Afluria single dose 2019-12-16 Completed [facility] 11:26:00 [facility] Afluria single dose Afluria single dose 2019-12-16 Completed [facility] 11:26:00 [facility] Afluria single dose Afluria single dose 2019-12-16 Completed [facility] 11:26:00 [facility] Afluria single dose Afluria single dose 2019-12-16 Completed [facility] 11:26:00 [facility] Afluria single dose Afluria single dose 2019-12-16 Completed [facility] 11:26:00 [facility] Afluria single dose Afluria single dose 2019-12-16 Completed [facility] 11:26:00 [facility] Afluria single dose Afluria single dose 2019-12-16 Completed [facility] 11:26:00 [facility] Afluria Afluria 2018-06-16 Completed [facility] 16:44:00 [facility] Afluria Afluria 2018-06-16 Completed [facility] 16:44:00 - [facility] Afluria Afluria 2018-06-16 Completed [facility] 16:44:00 - [facility] Afluria Afluria 2018-06-16 Completed [facility] 16:44:00 - [facility] Afluria Afluria 2018-06-16 Completed [facility] 16:44:00 - [facility] Afluria Afluria 2018-06-16 Completed [facility] 16:44:00 - [facility] Afluria Afluria 2018-06-16 Completed [facility] 16:44:00 - [facility] Afluria Afluria 2018-06-16 Completed [facility] 16:44:00 - [facility] Afluria Afluria 2018-06-16 Completed [facility] 16:44:00 - [facility] Afluria Afluria 2018-06-16 Completed [facility] 16:44:00 - [facility] Afluria Afluria 2018-06-16 Completed [facility] 16:44:00 - [facility] Afluria Afluria 2018-06-16 Completed [facility] 16:44:00 - [facility] Afluria Afluria 2018-06-16 Completed [facility] 16:44:00 - [facility] Afluria Afluria 2018-06-16 Completed [facility] 16:44:00 - [facility] Afluria Afluria 2018-06-16 Completed [facility] 16:44:00 - [facility] Afluria Afluria 2018-06-16 Completed [facility] 16:44:00 - [facility] PNEUMAVAX 23 PNEUMAVAX 23 2018-06-16 [facility]pleted [facility] 16:[facility] - [facility] Adacel (Tdap) Adacel (Tdap) 2018-06-16 [facility]00 [facility] PNEUMAVAX 23 PNEUMAVAX 23 2018-06-16 Completed [facility] 16:[facility]00 [facility] Adacel (Tdap) Adacel (Tdap) 2018-06-16 [facility]pleted [facility] 16:43[facility]00 - [facility] PNEUMAVAX 23 PNEUMAVAX 23 2018-06-16 Completed [facility] 16:43:00 - [facility] Adacel (Tdap) Adacel (Tdap) 2018-06-16 [facility]pleted [facility] 16:[facility]00 [facility] PNEUMAVAX 23 PNEUMAVAX 23 2018-06-16 Completed [facility] 16:43[facility]00 [facility] Adacel (Tdap) Adacel (Tdap) 2018-06-16 Completed [facility] 16:[facility]00 [facility] PNEUMAVAX 23 PNEUMAVAX 23 2018-06-16 Completed [facility] 16:43:00 [facility] Adacel (Tdap) Adacel (Tdap) 2018-06-16 [facility]pleted [facility] 16:[facility]00 [facility] PNEUMAVAX 23 PNEUMAVAX 23 2018-06-16 Completed [facility] 16:43[facility]00 [facility] Adacel (Tdap) Adacel (Tdap) 2018-06-16 Completed [facility] 16:43[facility]00 - [facility] PNEUMAVAX 23 PNEUMAVAX 23 2018-06-16 Completed [facility] 16:43[facility]00 [facility] Adacel (Tdap) Adacel (Tdap) 2018-06-16 [facility]pleted [facility] 16:[facility]00 [facility] PNEUMAVAX 23 PNEUMAVAX 2018-06-16 Completed [facility] 16:43:00 [facility] Adacel (Tdap) Adacel (Tdap) 2018-06-16 [facility]pleted [facility] 16:[facility]00 [facility] PNEUMAVAX 23 PNEUMAVAX 23 2018-06-16 Completed [facility] 16:43[facility]00 [facility] Adacel (Tdap) Adacel (Tdap) 2018-06-16 [facility]pleted [facility] 16:[facility]00 [facility] PNEUMAVAX 23 PNEUMAVAX 23 2018-06-16 Completed [facility] 16:43[facility]00 [facility] Adacel (Tdap) Adacel (Tdap) 2018-06-16 Completed [facility] 16:[facility]00 [facility] PNEUMAVAX 23 PNEUMAVAX 23 2018-06-16 Completed [facility] 16:43:00 - [facility] Adacel (Tdap) Adacel (Tdap) 2018-06-16 Completed [facility] 16:43:00 - [facility] PNEUMAVAX 23 PNEUMAVAX 23 2018-06-16 Completed [facility] 16:43:00 - [facility] Adacel (Tdap) Adacel (Tdap) 2018-06-16 Completed [facility] 16:43:00 - [facility] PNEUMAVAX 23 PNEUMAVAX 2018-06-16 Completed [facility] 16:43:00 - [facility] Adacel (Tdap) Adacel (Tdap) 2018-06-16 Completed [facility] 16:43:00 - [facility] PNEUMAVAX 23 PNEUMAVAX 23 2018-06-16 Completed [facility] 16:43:00 - [facility] Adacel (Tdap) Adacel (Tdap) 2018-06-16 Completed [facility] 16:43:00 - [facility] PNEUMAVAX 23 PNEUMAVAX 2018-06-16 Completed [facility] 16:43:00 - [facility] Adacel (Tdap) Adacel (Tdap) 2018-06-16 Completed [facility] 16:43:00 - [facility] PNEUMAVAX 23 PNEUMAVAX 2018-06-16 Completed [facility] 16:43:00 - [facility] Adacel (Tdap) Adacel (Tdap) 2018-06-16 Completed [facility] 16:43[facility]00 - [facility] TDAP > 7 TDAP > 7 2018-06-16 Completed [facility] Years-Adacel Years-Adacel 00:00:00 - [facility] PNEUMAVAX 23 PNEUMAVAX 2018-06-16 Completed [facility]00 [facility] Afluria Afluria 2018-06-16 Completed [facility] 00:00:00 [facility] Vital Signs Vital Name Observation Time Observation Value Comments Source height 2022-01-22 16:00:00 70.5 [in_i] [facility] weight 2022-01-22 16:00:00 285.6 [lb_av] [facility] temperature 2022-01-22 16:00:00 97.6 [degF] [facility] bmi 2022-01-22 16:00:00 40.4 kg/m2 [facility] oximetry 2022-01-22 16:00:00 92 % [facility] respiratory rate 2022-01-22 16:00:00 16 /min [facility] blood pressure 2022-01-22 16:00:00 123 mm[Hg] [facility] - systolic [facility] blood pressure 2022-01-22 16:00:00 77 mm[Hg] [facility] - diastolic [facility] height 2021-10-24 17:15:00 70.5 [in_i] [facility] weight 2021-10-24 17:15:00 286 [lb_av] [facility] temperature 2021-10-24 17:15:00 98.7 [degF] [facility] bmi 2021-10-24 17:15:00 40.45 kg/m2 [facility] oximetry 2021-10-24 17:15:00 99 % [facility] respiratory rate 2021-10-24 17:15:00 16 /min [facility] blood pressure 2021-10-24 17:15:00 144 mm[Hg] [facility] - systolic [facility] blood pressure 2021-10-24 17:15:00 80 mm[Hg] [facility] - diastolic [facility] height 2021-09-17 16:30:00 70.5 [in_i] [facility] weight 2021-09-17 16:30:00 288 [lb_av] [facility] temperature 2021-09-17 16:30:00 98 [degF] [facility] bmi 2021-09-17 16:30:00 40.74 kg/m2 [facility] oximetry 2021-09-17 16:30:00 98 % [facility] respiratory rate 2021-09-17 16:30:00 16 /min [facility] blood pressure 2021-09-17 16:30:00 135 mm[Hg] [facility] - systolic [facility] blood pressure 2021-09-17 16:30:00 85 mm[Hg] [facility] - diastolic [facility] height 2021-09-04 16:00:00 70.5 [in_i] [facility] weight 2021-09-04 16:00:00 290.8 [lb_av] Common [facility] temperature 2021-09-04 16:00:00 97.9 [degF] [facility] bmi 2021-09-04 16:00:00 41.13 kg/m2 [facility] oximetry 2021-09-04 16:00:00 98 % Common [facility] respiratory rate 2021-09-04 16:00:00 16 /min [facility] blood pressure 2021-09-04 16:00:00 144 mm[Hg] Common [facility] - systolic [facility] blood pressure 2021-09-04 16:00:00 83 mm[Hg] [facility] diastolic [facility] height 2021-03-06 16:40:00 70.5 [in_i] [facility] weight 2021-03-06 16:40:00 285 [lb_av] [facility] [facility] temperature 2021-03-06 16:40:00 97 [degF] Common S pirit [facility] bmi 2021-03-06 16:40:00 40.31 kg/m2 Common S pirit [facility] blood pressure 2021-03-06 16:40:00 115 mm[Hg] [facility] - systolic [facility] blood pressure 2021-03-06 16:40:00 76 mm[Hg] Common [facility] - diastolic [facility] height 2020-12-28 11:30:00 70.5 [in_i] [facility] weight 2020-12-28 11:30:00 286.2 [lb_av] [facility] temperature 2020-12-28 11:30:00 96.9 [degF] [facility] bmi 2020-12-28 11:30:00 40.48 kg/m2 [facility] oximetry 2020-12-28 11:30:00 97 % [facility] respiratory rate 2020-12-28 11:30:00 19 /min [facility] blood pressure 2020-12-28 11:30:00 110 mm[Hg] Common [facility] - systolic [facility] blood pressure 2020-12-28 11:30:00 80 mm[Hg] [facility] diastolic [facility] Procedures Procedure Date / Time Performed Performing Clinician [facility] e ASSIGNMENT OF BENEFITS 2020-10-15 18:23:16 Doctor Unassigned, No [facility] Encounters Start End Encounter Admission Attending Care Care Encounter Source Date/Time Date/Time Type Type Clinicians Facility Department ID 2022-01-27 Outpatient Crespo, STLMLC STLC [id number] Common 09:36:00 [facility] 2022-01-21 Outpatient Crespo, STLMLC STLMLC [id number] Common 09:11:00 [facility] 2021-06-03 Outpatient Crespo, STLMLC STLMLC [id number] Common 10:17:00 [facility] 2021-03-27 Outpatient Crespo, STLMLC STLMLC [id number] Common 14:30:38 [facility] 2021-03-27 Outpatient Crespo, STLMLC STLMLC [id number] Common 14:26:23 [facility] [id number] [facility] 2021-03-27 Outpatient Crespo, STLMLC STLMLC [id number] Common 14:06:09 [facility] [id number] [facility] 2021-03-27 Outpatient Crespo, STLMLC STLMLC [id number] Common 13:40:42 [facility] [id number] [facility] 2021-03-27 Outpatient Crespo, STLMLC STLMLC [id number] Common 12:31:11 [facility] 13774 [facility] 2021-03-27 Outpatient Crespo, STLMLC STLMLC [id number] Common 12:26:41 [facility] [id number] [facility] 2021-03-27 Outpatient Crespo, STLMLC STLMLC [id number] Common 11:53:40 [facility] [id number] [facility] 2021-03-27 Outpatient Crespo, STLMLC STLMLC [id number] Common 11:32:22 [facility] 16843 [facility] 2021-03-27 Outpatient Crespo, STLMLC STLMLC Common 11:29:38 [facility] 10491 [facility] 2022-01-27 2022-01-27 (TEL) STLMLC STLMLC [id number] Co mmon 00:00:00 00:00:00 [facility] 2022-01-22 2022-01-22 OFFICE STLMLC STLMLC [id number] Co mmon 00:00:00 00:00:00 VISIT [facility] LEVEL 4 [facility] 2022-01-07 2022-01-07 (TEL) STLMLC STLMLC [id number] Co mmon 00:00:00 00:00:00 [facility] 2021-12-17 2021-12-17 (TEL) STLMLC STLMLC [id number] Co mmon 00:00:00 00:00:00 [facility] 2021-12-10 2021-12-10 (TEL) STLMLC STLMLC [id number] Co mmon 00:00:00 00:00:00 [facility] 2021-10-24 2021-10-24 OFFICE STLMLC STLMLC [id number] Co mmon 00:00:00 00:00:00 VISIT [facility] PT - CHI LEVEL 4 [facility] 2021-09-17 2021-09-17 PREV VISIT STLMLC STLMLC [id number] Common 00:00:00 00:00:00 EST AGE Darren 40-64 - [facility] 2021-09-09 2021-09-09 (TEL) STLMLC STLMLC [id number] Co mmon 00:00:00 00:00:00 [facility] 2021-09-04 2021-09-04 OFFICE STLMLC STLMLC [id number] Co mmon 00:00:00 00:00:00 VISIT [facility] PT - CHI LEVEL 4 [facility] 2021-06-20 2021-06-20 (TEL) STLMLC STLMLC [id number] Co mmon 00:00:00 00:00:00 [facility] 2021-06-03 2021-06-03 (TEL) STLMLC STLMLC [id number] Co mmon 00:00:00 00:00:00 [facility] 2021-03-06 2021-03-06 OFFICE STLMLC STLMLC [id number] Co mmon 00:00:00 00:00:00 VISIT [facility] PT - CHI LEVEL 4 [facility] 2021-02-15 2021-02-15 (TEL) STLMLC STLMLC [id number] Co mmon 00:00:00 00:00:00 [facility] 2020-12-28 2020-12-28 OFFICE STLMLC STLMLC [id number] Co mmon 00:00:00 00:00:00 VISIT EST Spir it PT LEVEL 3 - [facility] 2020-12-27 2020-12-27 (TEL) STLMLC STLMLC [id number] Co mmon 00:00:00 00:00:00 [facility] 2020-11-14 2020-11-14 (TEL) STLMLC STLMLC [id number] Co mmon 00:00:00 00:00:00 [facility] 2020-11-01 2020-11-01 Letter YUNIOR Araujo [id number] Univers 00:00:00 00:00:00 (Out) Aryalma TAYLOR [id number] it y [facility] [id number] Graeme as [phone] [address] 2020-10-30 2020-10-30 Laboratory Only, Ang Db Test [facility] [id number] Univers 11:26:29 11:36:29 Only [facility] [id number] ity [facility] [id number] Graeme as Madhu?Blea [phone] [address] Medical Office Building 2020-10-30 2020-10-30 Outpatient R [facility] [id number] Univers 11:25:00 11:25:00 DARLEEN ity [facility] 2020-10-19 2020-10-19 Outpatient STLC STLC [id number] Common 00:00:00 00:00:00 [facility] 2020-10-18 2020-10-18 Outpatient STLC STLC [id number] Common 00:00:00 00:00:00 [facility] 2020-10-16 2020-10-16 Telephone YUNIOR Barillas [id number] Univers 00:00:00 00:00:00 Ghada TAYLOR [id number] it y [facility] [id number] Graeme as [phone] [address] 2020-10-15 2020-10-15 Outpatient R [facility] [id number] Univers 13:00:00 13:00:00 STEFANIE talavera f [facility] 2020-10-15 2020-10-15 Orders Doctor MOJICA [id number] Univers 00:00:00 00:00:00 Only Unassigned, CLAUDIA [id number] ity [facility] [id number] Graeme as [phone] [address] 2020-09-19 2020-09-19 Outpatient STLMLC STLMLC [id number] Common 00:00:00 00:00:00 [facility] 2020-09-13 2020-09-13 Outpatient STLMLC STLMLC [id number] Common 00:00:00 00:00:00 [facility] 2020-09-13 2020-09-13 Outpatient STLMLC STLMLC [id number] Common 00:00:00 00:00:00 [facility] 2020-09-06 2020-09-06 Outpatient STLMLC STLMLC [id number] Common 00:00:00 00:00:00 [facility] 2020-07-17 2020-07-17 Outpatient STLMLC STLMLC [id number] Common 00:00:00 00:00:00 [facility] 2020-05-09 2020-05-09 Outpatient STLMLC STLMLC [id number] Common 00:00:00 00:00:00 [facility] 2020-03-30 2020-03-30 Outpatient STLMLC STLMLC [id number] Common 00:00:00 00:00:00 [facility] 2020-03-21 2020-03-21 Outpatient R [facility] [id number] Univers 19:00:00 19:00:00 MARY phillips [facility] 2020-03-21 2020-03-21 Laboratory Lab, [facility] [id number] 18:39:35 18:59:35 Only [facility] [id number] [id number] essio [phone] nal [address] One 2020-03-21 2020-03-21 Laboratory Lab, [facility] Fam Pob I [facility] [id number] [facility] 18:39:35 18:59:35 Only [facility] [id number] ity [facility] [id number] Graeme as Gayle [phone] [place] [address] [address] [facility] One 2019-12-16 2019-12-16 Outpatient STLMLC STLMLC [id number] Common 00:00:00 00:00:00 [facility] 2019-11-22 2019-11-22 Outpatient STLMLC STLMLC [id number] Common 00:00:00 00:00:00 [facility] 2019-11-03 2019-11-03 [facility] [id number] Common 14:32:00 14:32:00 [place] [address] [facility] 2019-11-01 2019-11-01 [facility] [id number] Common 16:25:00 16:25:00 [place] [address] [facility] 2019-10-20 2019-10-20 [facility] [id number] Common 16:15:00 16:15:00 [place] [address] [facility] 2019-10-20 2019-10-20 [facility] [id number] Common 09:55:00 09:55:00 [place] [address] [facility] 2019-10-20 2019-10-20 [facility] [id number] Common 09:46:00 09:46:00 [place] [address] [facility] 2019-10-03 2019-10-03 [facility] [id number] Common 13:26:00 13:26:00 t Specialty/U Sp [facility] Specialty rology - CHI /[facility] Clinic [facility] 2019-09-29 2019-09-29 [facility] [id number] Common 15:40:00 15:40:00 [place] [address] [facility] 2019-09-27 2019-09-27 [facility] [id number] Common 10:30:00 10:30:00 t Specialty/U Sp [facility] Specialty rology - CHI /Urology Clinic [facility] 2019-09-14 2019-09-14 [facility] [id number] Common 13:28:00 13:28:00 t Specialty/U Sp [facility] Specialty rology - CHI /Urology Clinic [facility] 2019-09-01 2019-09-01 [facility] [id number] Common 16:15:00 16:15:00 [place] [address] [facility] 2019-08-12 2019-08-12 [facility] [id number] Common 16:00:00 16:00:00 t Specialty/U Sp [facility] Specialty rology - CHI /Urology Clinic [facility] 2019-08-02 2019-08-02 [facility] [id number] Common 08:45:00 08:45:00 [place] [employer] [address] Sp[address] [facility] 2019-03-07 2019-03-07 [facility] [id number] Common 13:00:00 13:00:00 t Specialty/U Sp [facility] Specialty rology - CHI /Urology Clinic [facility] 2019-02-28 2019-02-28 [facility] [id number] Common 08:47:00 08:47:00 t Specialty/U Sp [facility] Specialty rology - CHI /Urology Clinic [facility] 2019-02-04 2019-02-04 [facility] [id number] Common 15:00:00 15:00:00 t Specialty/U Sp [facility]ham Specialty rology - CHI /Urology Clinic [facility] 2019-01-20 2019-01-20 [facility] [id number] Common 15:45:00 15:45:00 t [place] [address] [facility] 2019-01-17 2019-01-17 [facility] [id number] Common 17:07:00 17:07:00 t [place] [address] [facility] 2019-01-12 2019-01-12 [facility] [id number] Common 09:38:00 09:38:00 [place] [address] [facility] 2018-10-13 2018-10-13 [facility] [id number] Common 10:20:00 10:20:00 [place] [address] [facility] 2018-09-28 2018-09-28 [facility] [id number] Common 16:45:00 16:45:00 t [place] [address] [facility] 2018-06-16 2018-06-16 [facility] [id number] Common 16:15:00 16:15:00 [place] [address] [facility] 2018-05-12 2018-05-12 [facility] [id number] Common 16:45:00 16:45:00 [place] [address] [facility] 2017-10-12 2017-10-12 [facility] [id number] Common 13:30:00 13:30:00 [place] [address] [facility] Results This patient has no known results.
--- NOTE | 2022-04-19 10:35 | EDPHYS ---
Physician Documentation [facility] Name: Jamar Cheng Age: 56 yrs Sex: Male : 1965 Arrival Date: 04/19/2022 Time: 10:22 Bed 18 Private MD: ED Physician Eugenio Rashid HPI: 04/19 10:38 This 56 yrs old Black Male presents to ER via Ambulatory with complaints of Toothache, rt Fever, Facial Swelling. 10:38 Patient presents to the ED with a right upper dental pain starting about 2 days ago. rt Reports that he believes that he has an abscessed tooth. He has been taking [id number] medications to no relief. Patient denies other acute complaints, pain is aching nature, nonradiating, no difficulty swallowing. Symptoms are mild in severity.. Historical: - Allergies: 10:23 No Known Allergies; aa5 - PMHx: 10:23 chronic back pain; Diabetes - NIDDM; borderline; Hypertension; aa5 - Immunization history:: Adult Immunizations unknown. - Social history:: Smoking status: Patient reports the use of cigarette tobacco products, smokes one-half pack cigarettes per day. - Family history:: not pertinent. ROS: 10:38 Constitutional: Negative for fever, chills, and weight loss, Cardiovascular: Negative rt for chest pain, palpitations, and edema, Respiratory: Negative for shortness of breath, cough, wheezing, and pleuritic chest pain, Abdomen/GI: Negative for abdominal pain, nausea, vomiting, diarrhea, and constipation, Skin: Negative for injury, rash, and discoloration, Neuro: Negative for headache, weakness, numbness, tingling, and seizure, Psych: Negative for depression, anxiety, suicide ideation, homicidal ideation, and hallucinations. 10:38 ENT: Positive for dental pain, Negative for difficulty swallowing, difficulty handling secretions. Exam: 10:38 Constitutional: This is a well developed, well nourished patient who is awake, alert, rt and in no acute distress. Head/Face: Normocephalic, atraumatic. Skin: Warm, dry with normal turgor. Normal color with no rashes, no lesions, and no evidence of cellulitis. Neuro: Awake and alert, GCS 15, oriented to person, place, time, and situation. Cranial nerves II-XII grossly intact. Motor strength 5/5 in all extremities. Sensory grossly intact. Cerebellar exam normal. Normal gait. Psych: Awake, alert, with orientation to person, place and time. Behavior, mood, and affect are within normal limits. 10:38 ENT: Mild swelling just posterior to the right upper molar, no head, obvious drainable abscess. No posterior pharyngeal erythema, uvula is midline, no stridor. Vital Signs: 10:23 BP 127 / 75; Pulse 83; Resp 18 S; Temp 99.5(O); Pulse Ox 97% on R/A; Weight 124.74 kg aa5 (R); Height 5 ft. 10 in. (177.80 cm) (R); 10:23 Body Mass Index 39.46 (124.74 kg, 177.80 cm) aa5 MDM: 10:30 Patient medically screened. rt 10:38 Differential diagnosis: dental caries, dental abscess. Data reviewed: vital signs, rt nurses notes. Test considered but Not performed: CT: No evidence for RPA, PACKING MACHINE PILOT CAN ROUTER, Willian's angina, CT scan is not indicated.. Counseling: I had a detailed discussion with the patient and/or guardian regarding: the historical points, exam findings, and any diagnostic results supporting the discharge/admit diagnosis, the need for outpatient follow up, a dentist. Response to treatment: the patient's symptoms have mildly improved after treatment. Administered Medications: 10:49 Drug: Ketorolac 30 mg Route: IM; Site: right gluteus; kr3 11:12 Follow up: Response: No adverse reaction kr3 Disposition Summary: 04/19/22 10:34 Discharge Ordered Location: Home rt Problem: new rt Symptoms: are unchanged rt Condition: Stable rt Diagnosis - Dental caries, unspecified rt Followup: rt - With: Private Physician - When: 2 - 3 days - Reason: Discharge Instructions: - Discharge Summary Sheet rt - Dental Pain rt Forms: - Medication Reconciliation Form rt - Thank You Letter rt - Antibiotic Education rt - Prescription Opioid Use rt Prescriptions: - Amoxicillin 875 mg Oral Tablet - take 1 tablet by ORAL route every 12 hours for 10 days; 20 tablet; Refills: 0, rt Product Selection Permitted Signatures: Malia Mccabe RN RN aa5 Pepper Matos RN RN kr3 Eugenio Rashid MD MD rt
--- NOTE | 2022-04-19 10:35 | ER ---
Nurse's Notes [facility] Name: Jamar Cheng Age: 56 yrs Sex: Male : 1965 Arrival Date: 04/19/2022 Time: 10:22 Bed 18 Private MD: Diagnosis: Dental caries, unspecified Presentation: 04/19 10:23 Chief complaint: Patient states: "I think I have a tooth abscess (Right upper teeth)". aa5 Pt c/o toothache x 2 days ago. 10:23 Coronavirus screen: At this time, the client does not indicate any symptoms associated aa5 with coronavirus-19. Ebola Screen: Patient denies travel to an Ebola-affected area in the 21 days before illness onset. Initial Sepsis Screen: Does the patient meet any 2 criteria? No. Patient's initial sepsis screen is negative. Does the patient have a suspected source of infection? No. Patient's initial sepsis screen is negative. Risk Assessment: Do you want to hurt yourself or someone else? Patient reports no desire to harm self or others. Onset of symptoms was April 2022. 10:23 Acuity: IRWIN 4 aa5 10:23 Method Of Arrival: Ambulatory aa5 Triage Assessment: 10:55 General: Appears in no apparent distress. uncomfortable, Behavior is calm, cooperative, kr3 appropriate for age. Pain: Complains of pain in mouth. EENT: No signs and/or symptoms were reported regarding the EENT system. Neuro: Level of Consciousness is awake, alert, obeys commands, Oriented to person, place, time, situation. Cardiovascular: Patient's skin is warm and dry. Respiratory: Airway is patent Respiratory effort is even, unlabored, Respiratory pattern is regular, symmetrical. GI: No signs and/or symptoms were reported involving the gastrointestinal system. : No signs and/or symptoms were reported regarding the genitourinary system. Derm: No signs and/or symptoms reported regarding the dermatologic system. Musculoskeletal: No signs and/or symptoms reported regarding the musculoskeletal system. 10:56 EENT: Reports pain in right cheek. kr3 Historical: - Allergies: 10:23 No Known Allergies; aa5 - PMHx: 10:23 chronic back pain; Diabetes - NIDDM; borderline; Hypertension; aa5 - Immunization history:: Adult Immunizations unknown. - Social history:: Smoking status: Patient reports the use of cigarette tobacco products, smokes one-half pack cigarettes per day. - Family history:: not pertinent. Screenin:56 [facility] ED Fall Risk Assessment (Adult) History of falling in the last 3 months, kr3 including since admission No falls in past 3 months (0 pts) Confusion or Disorientation No (0 pts) Intoxicated or Sedated No (0 pts) Impaired Gait No (0 pts) Mobility Assist Device Used No (0 pt) Altered Elimination No (0 pt) Score/Fall Risk Level 0 - 2 = Low Risk Oriented to surroundings, Maintained a safe environment, Educated pt \\T\\ family on fall prevention, incl call for assistance when getting out of bed, Assessed \\T\\ reinforced patient's understanding of fall precautions, Hourly rounding (assess needs \\T\\ fall precautionary measures) done. Abuse screen: Denies threats or abuse. Nutritional screening: No deficits noted. Tuberculosis screening: No symptoms or risk factors identified. Assessment: 10:58 Reassessment: see triage note. kr3 Vital Signs: 10:23 BP 127 / 75; Pulse 83; Resp 18 S; Temp 99.5(O); Pulse Ox 97% on R/A; Weight 124.74 kg aa5 (R); Height 5 ft. 10 in. (177.80 cm) (R); 10:23 Body Mass Index 39.46 (124.74 kg, 177.80 cm) aa5 ED Course: 10:22 Patient arrived in ED. as 10:23 Eugenio Rashid MD is Attending Physician. rt 10:23 Arm band placed on Patient placed in an exam room, on a stretcher. aa5 10:25 Bed in low position. Call light in reach. Side rails up X 1. kr3 10:29 Triage completed. aa5 10:43 Pepper Matos, MELISSA is Primary Nurse. kr3 10:56 No provider procedures requiring assistance completed. Patient did not have IV access kr3 during this emergency room visit. Administered Medications: 10:49 Drug: Ketorolac 30 mg Route: IM; Site: right gluteus; kr3 11:12 Follow up: Response: No adverse reaction kr3 Medication: 10:57 VIS not applicable for this client. kr3 Outcome: 10:34 Discharge ordered by . rt 11:11 Patient left the ED. kr3 11:12 Discharged to home ambulatory. kr3 11:12 Condition: stable 11:12 Discharge instructions given to patient, Instructed on discharge instructions, follow up and referral plans. medication usage, Demonstrated understanding of instructions, follow-up care, medications, Prescriptions given X 1. Signatures: Irina Reyes Audri, RN RN aa5 Pepper Matos RN RN kr3 Eugenio Rashid MD MD rt
[2022-04-19] MEDS ORDERED: KETOROLAC 30 MG/ML INJ ONE (10:48)
[2022-04-19 11:17] VITALS: BP 127/75; TEMP 99.5; O2SAT 97
== END 2022-04-19 11:11 | disposition home or self-care (01) ==
LOC: ER 10:21
DX: K02.9 Dental caries, unspecified (principal); F17.210 Nicotine dependence, cigarettes, uncomplicated
CPT/HCPCS: 96372; 99283

== ENCOUNTER 2023-12-29 04:54 | Emergency (ER) | payer BC, OTHER, SELFPAY ==
[~2023-12-29 04:54] MED LIST: DIPHENHYDRAMINE 50 MG/ML VIAL ONE; METOCLOPRAMIDE 10 MG/2mL INJ ONE; NA CHLORIDE 0.9% 1,000 ML ONE
[2023-12-29 04:59] LABS: ALT/SGPT 15 U/L (16-61); AST/SGOT < 10 U/L (15-37); Albumin/Globulin Ratio 0.8 (1.1-1.8); Alkaline Phosphatase 78 U/L (45-117); Anion Gap 6.1 mEq/L (5.0-15.0); BUN Blood Urea Nitrogen 10 mg/dL (7-18); Bicarbonate 28 mEq/L (21-32); Bilirubin Total 0.8 mg/dL (0.2-1.0); Glomerular Filtration Rate 102 ml/min (=/>90); Glucose Level 121 mg/dL (74-106); Lipase 24 U/L (13-75); Potassium 4.1 mEq/L (3.5-5.1); Sodium Level 141 mEq/L (136-145)
[2023-12-29 05:00] LABS: Absolute Basophils 0.1 K/uL (0-0.5); Absolute Eosinophils 0.2 K/uL (0-0.5); Absolute Lymphocytes (CBC) 1.2 K/uL (0.7-4.9); Absolute Monocytes 0.7 K/uL (0.1-1.3); Absolute Neutrophil 5.7 K/uL (1.8-8.0); Basophils % 1.3 % (0-1.3); Eosinophils % 2.2 % (0-4.4); Hematocrit 29.1 % (39.6-49.0); Hemoglobin 9.1 g/dL (13.6-17.9); MCH 28.7 pg (27.0-35.0); MCHC 31.4 g/dL (32.0-36.0); MCV 91.4 fL (80-100); MPV 9.6 fL (7.6-11.3); Monocytes % 8.9 % (3.3-12.3); Neutrophils % 72.6 % (41.7-73.7); Nucleated Red Blood Cells % 0.1 % (0-0); Platelets 272 thou/uL (152-406); RBC Red Blood Cell Count 3.18 M/uL (4.33-5.43); Red Cell Distribution Width 15.2 % (12.1-15.2)
[2023-12-29 05:47] LABS: Renal Epithelial <5 /HPF (None Seen); Specific Gravity 1.018 (1.005-1.030); Sqamous Epithelial <5 /HPF (None Seen); Urine Bacteria None Seen /HPF (<20); Urine Bilirubin NEGATIVE (Negative); Urine Blood Negative (Negative); Urine Clarity Clear (Clear); Urine Color Light-Yellow (Yellow); Urine Culture Reflex Order NOT NEEDED; Urine Glucose NEGATIVE (Negative); Urine Ketones NEGATIVE (Negative); Urine Microscopic Reflex YN ORDER UMIC; Urine Mucus 2+ /HPF (None Seen); Urine Nitrite NEGATIVE (Negative); Urine Protein NEGATIVE (Negative); Urine RBC None Seen /HPF (None Seen); Urine Urobilinogen Normal (Normal); Urine WBC <5 /HPF (<5); Urine pH 5.5 (5.0-7.0)
--- NOTE | 2023-12-29 05:57 | EDPHYS ---
Physician Documentation [facility] Name: Jamar Cheng Age: 58 yrs Sex: Male : 1965 Arrival Date: 12/29/2023 Time: 03:24 Bed 5 Private MD: ED Physician Raphael Hernandez HPI: 12/28 03:37 This 58 yrs old Black Male presents to ER via Unassigned with complaints of General ec2 Weakness, Nausea/Vomiting/Diarrhea. 03:37 Patient arrives today for feeling unwell. States that he has been having some nausea as ec2 well as some diarrhea ongoing for 1 day. Patient reports some abdominal cramping as well. Patient reports a history of hypertension, hyperlipidemia, diabetes, previous stroke, residual minimal left upper and lower extremity deficits. Historical: - Allergies: 03:52 No Known Allergies; vc1 - PMHx: 03:52 chronic back pain; Diabetes - NIDDM; borderline; Hypercholesterolemia; Hypertension; vc1 Prostate Issue; - PSHx: 03:52 None; vc1 - Immunization history:: Client reports receiving the 2nd dose of the Covid vaccine. - Infectious Disease History:: Denies. - Social history:: Smoking status: Patient reports the use of cigarette tobacco products, 3-4 cigs/day. ROS: 03:37 Constitutional: as per hpi ec2 Exam: 03:37 Constitutional: GEN: NAD Head: atraumatic Eyes: EOMI Ears: External ears are ec2 normal. CV: regular rate LUNGS: no respiratory distress ABD: non-distended SKIN: no evidence of rashes MSK: no evidence of trauma. Neuro: Cranial nerves II through XII intact, strength intact upper extremities, no pronator drift, sensation intact throughout Vital Signs: 03:25 BP 149 / 88; Pulse 98; Resp 16; Temp 98.2; Pulse Ox 92% ; Weight 115.67 kg; Height 5 vc1 ft. 10 in. ; Pain 0/10; 03:45 BP 144 / 89; Pulse 91; Resp 17; Pulse Ox 96% on R/A; al5 04:00 BP 152 / 87; Pulse 87; Resp 18; Pulse Ox 94% on R/A; al5 04:30 BP 155 / 77; Pulse 70; Resp 16; Pulse Ox 93% on R/A; al5 05:00 BP 157 / 90; Pulse 72; Resp 16; Pulse Ox 95% on R/A; al5 06:30 BP 144 / 85; Pulse 83; Resp 17; Temp 98.3; Pulse Ox 96% ; dd2 03:25 Body Mass Index 36.59 (115.67 kg, 177.8 cm) vc1 03:25 Pain Scale: Adult vc1 MDM: 03:30 Medical Screening Exam initiated ec2 03:37 Data reviewed: vital signs. ED course: Patient arrives today for generalized weakness ec2 along with nausea along with diarrhea. Examination remarkable for well-appearing neuro intact individuals otherwise in no acute distress with a reassuring neurologic examination with no appreciable focal deficit appreciated. Will obtain lab work, urine studies, treat the patient's symptoms and reassess. Differential includes gastroenteritis, urinary tract infection, dehydration . 05:56 ED course: On reassessment patient is well-appearing no acute distress. Will discharge ec2 home. Return precautions given.. 12/28 03:36 Order name: CBC with Diff; Complete Time: 05:03 ec2 12/28 03:36 Order name: CMP; Complete Time: 04:59 ec2 12/28 03:36 Order name: Lipase; Complete Time: 04:59 ec2 12/28 03:36 Order name: Urinalysis w/ reflexes; Complete Time: 05:55 ec2 12/28 03:36 Order name: IV Saline Lock; Complete Time: 03:42 ec2 12/28 03:36 Order name: Labs collected and sent; Complete Time: 03:42 ec2 Administered Medications: 04:03 Drug: NS 0.9% IV 1000 ml IV at 1 bolus Per protocol; to be given as a bolus over 60 dd2 minutes Route: IV; Rate: 1 bolus; Site: right antecubital; 04:18 Follow up: Response: No adverse reaction dd2 05:03 Follow up: IV Status: Completed infusion; IV Intake: 1000ml dd2 04:03 Drug: metoCLOPramide IVP 10 mg IVP once; over 1 to 2 minutes Route: IVP; Site: right dd2 antecubital; 04:18 Follow up: Response: No adverse reaction dd2 04:03 Drug: diphenhydrAMINE IVP 25 mg IVP once Route: IVP; Site: right antecubital; dd2 04:18 Follow up: Response: No adverse reaction dd2 Point of Care Testing: Blood Glucose: 03:36 Blood Glucose: 113 mg/dL; vc1 Ranges: Critical Glucose Levels:Adult <50 mg/dl or >400 mg/dl <40 mg/dl or >180 mg/dl Disposition Summary: 12/29/23 05:56 Discharge Ordered Notes: Location: Home ec2 Condition: Stable ec2 Diagnosis - Nausea ec2 - Diarrhea, unspecified ec2 Followup: ec2 - With: Private Physician - When: - Reason: Re-evaluation by your physician Discharge Instructions: - Discharge Summary Sheet ec2 - Diarrhea, Adult ec2 Forms: - Medication Reconciliation Form ec2 - Antibiotic Education ec2 - Prescription Opioid Use ec2 - Patient Portal Instructions ec2 - Leadership Thank You Letter ec2 Prescriptions: - Compazine 10 mg Oral Tablet - take 1 tablet ORAL route every 8 hours As needed; 20 tablet; Refills: 0, ec2 Product Selection Permitted Signatures: Dispatcher [employer] Sabra Yee RN RN vc1 Raphael Hernandez MD MD ec2 ADRIAN VERDIN RN RN dd2
--- NOTE | 2023-12-29 05:57 | ER ---
Nurse's Notes [facility] Name: Jamar Cheng Age: 58 yrs Sex: Male : 1965 Arrival Date: 12/29/2023 Time: 03:24 Bed 5 Private MD: Diagnosis: Nausea;Diarrhea, unspecified Presentation: 12/28 03:25 Chief complaint: Patient states: Woke up around one, felt like I was having a panic vc1 attack and couldn't breath, had cold chills, sweats, congestion, N/V/D. 03:25 Coronavirus screen: Client denies travel out of the [place] in the last 14 days. chills, vc1 diarrhea, nausea, shortness of breath, vomiting. Client presents with at least one sign or symptom that may indicate coronavirus-19. Ebola Screen: Patient negative for fever greater than or equal to 101.5 degrees Fahrenheit, and additional compatible Ebola Virus Disease symptoms Patient denies exposure to infectious person. Patient denies travel to an Ebola-affected area in the 21 days before illness onset. No symptoms or risks identified at this time. Initial Sepsis Screen: Does the patient meet any 2 criteria? No. Patient's initial sepsis screen is negative. Does the patient have a suspected source of infection? No. Patient's initial sepsis screen is negative. Risk Assessment: Do you want to hurt yourself or someone else? Patient reports no desire to harm self or others. Onset of symptoms was December 29, 2023 at 01:00. 03:25 Method Of Arrival: Ambulatory vc1 03:25 Acuity: IRWIN 3 vc1 Triage Assessment: 03:56 General: Appears in no apparent distress. uncomfortable, ill, well groomed, well vc1 developed, Behavior is calm, cooperative, appropriate for age. Pain: Complains of pain in "chronic headache". EENT: Reports nasal congestion. Neuro: Level of Consciousness is awake, alert, obeys commands, Oriented to person, place, time, situation, Appropriate for age. Cardiovascular: Capillary refill < 3 seconds Patient's skin is warm and dry. Respiratory: Airway is patent Respiratory effort is even, unlabored, Respiratory pattern is regular, symmetrical. GI: Abdomen is round non-distended, Reports diarrhea, nausea, vomiting. : No deficits noted. No signs and/or symptoms were reported regarding the genitourinary system. Derm: Skin is intact, is healthy with good turgor, Skin is dry, Skin is normal, Skin temperature is warm. Musculoskeletal: Circulation, motion, and sensation intact. Range of motion: intact in all extremities. Historical: - Allergies: 03:52 No Known Allergies; vc1 - PMHx: 03:52 chronic back pain; Diabetes - NIDDM; borderline; Hypercholesterolemia; Hypertension; vc1 Prostate Issue; - PSHx: 03:52 None; vc1 - Immunization history:: Client reports receiving the 2nd dose of the Covid vaccine. - Infectious Disease History:: Denies. - Social history:: Smoking status: Patient reports the use of cigarette tobacco products, 3-4 cigs/day. Screenin:40 [facility] ED Fall Risk Assessment (Adult) History of falling in the last 3 months, al5 including since admission No falls in past 3 months (0 pts) Confusion or Disorientation No (0 pts) Intoxicated or Sedated No (0 pts) Impaired Gait No (0 pts) Mobility Assist Device Used No (0 pt) Altered Elimination No (0 pt) Score/Fall Risk Level 0 - 2 = Low Risk Oriented to surroundings, Maintained a safe environment, Hourly rounding (assess needs \\T\\ fall precautionary measures) done. Abuse screen: Denies threats or abuse. Denies injuries from another. Nutritional screening: No deficits noted. Tuberculosis screening: No symptoms or risk factors identified. Assessment: 03:41 General: Appears in no apparent distress. Behavior is calm, cooperative. Pain: Denies al5 pain. Neuro: Level of Consciousness is awake, alert, obeys commands, Oriented to person, place, time, situation. Neuro: Reports weakness in generalized. Cardiovascular: Capillary refill < 3 seconds Patient's skin is warm and dry. Respiratory: Airway is patent Respiratory effort is even, unlabored, Respiratory pattern is regular, symmetrical. GI: Reports diarrhea, nausea, vomiting. : No signs and/or symptoms were reported regarding the genitourinary system. EENT: No signs and/or symptoms were reported regarding the EENT system. Derm: Skin is intact, Skin is pink, warm \\T\\ dry. normal. Musculoskeletal: No signs and/or symptoms reported regarding the musculoskeletal system. 05:32 Reassessment: Patient appears in no apparent distress at this time. No changes from al5 previously documented assessment. Patient and/or family updated on plan of care and expected duration. Pain level reassessed. Patient is alert, oriented x 3, equal unlabored respirations, skin warm/dry/pink. Vital Signs: 03:25 BP 149 / 88; Pulse 98; Resp 16; Temp 98.2; Pulse Ox 92% ; Weight 115.67 kg; Height 5 vc1 ft. 10 in. ; Pain 0/10; 03:45 BP 144 / 89; Pulse 91; Resp 17; Pulse Ox 96% on R/A; al5 04:00 BP 152 / 87; Pulse 87; Resp 18; Pulse Ox 94% on R/A; al5 04:30 BP 155 / 77; Pulse 70; Resp 16; Pulse Ox 93% on R/A; al5 05:00 BP 157 / 90; Pulse 72; Resp 16; Pulse Ox 95% on R/A; al5 06:30 BP 144 / 85; Pulse 83; Resp 17; Temp 98.3; Pulse Ox 96% ; dd2 03:25 Body Mass Index 36.59 (115.67 kg, 177.8 cm) vc1 03:25 Pain Scale: Adult vc1 ED Course: 03:24 Patient arrived in ED. [id number] 03:30 Raphael Hernandez MD is Attending Physician. ec2 03:40 Moira Manning, MELISSA is Primary Nurse. al5 03:40 Patient has correct armband on for positive identification. Placed in gown. Bed in low al5 position. Call light in reach. Side rails up X2. Provided Education on: plan of care. 03:41 No provider procedures requiring assistance completed. Inserted saline lock: 20 gauge al5 in right antecubital area, using aseptic technique. Blood collected. Flushed with 10 mL NS. 03:45 Initial lab(s) drawn, by ED staff, sent to lab. dd2 03:52 Triage completed. vc1 03:54 Arm band placed on right wrist. vc1 04:46 Lab(s) recollected, by me, sent to lab. dd2 06:30 IV discontinued, intact, bleeding controlled, No redness/swelling at site. Pressure dd2 dressing applied. Administered Medications: 04:03 Drug: NS 0.9% IV 1000 ml IV at 1 bolus Per protocol; to be given as a bolus over 60 dd2 minutes Route: IV; Rate: 1 bolus; Site: right antecubital; 04:18 Follow up: Response: No adverse reaction dd2 05:03 Follow up: IV Status: Completed infusion; IV Intake: 1000ml dd2 04:03 Drug: metoCLOPramide IVP 10 mg IVP once; over 1 to 2 minutes Route: IVP; Site: right dd2 antecubital; 04:18 Follow up: Response: No adverse reaction dd2 04:03 Drug: diphenhydrAMINE IVP 25 mg IVP once Route: IVP; Site: right antecubital; dd2 04:18 Follow up: Response: No adverse reaction dd2 Medication: 03:41 VIS not applicable for this client. al5 Point of Care Testing: Blood Glucose: 03:36 Blood Glucose: 113 mg/dL; vc1 Ranges: Intake: 05:03 IV: 1000ml; Total: 1000ml. dd2 Outcome: 05:56 Discharge ordered by . ec2 06:31 Discharged to home ambulatory, dd2 06:31 Condition: stable 06:31 Discharge instructions given to patient, significant other, Instructed on discharge instructions, follow up and referral plans. medication usage, Demonstrated understanding of instructions, follow-up care, medications, Prescriptions given X 1, 06:31 Patient left the ED. dd2 Signatures: Vianey Moss6 Sabra Huerta RN RN vc1 Raphael Hernandez MD MD ec2 Moira Manning RN RN al5 ADRIAN VERDIN RN RN dd2
[2023-12-29 06:49] VITALS: BP 144/85; TEMP 98.3; O2SAT 96
== END 2023-12-29 06:31 | disposition home or self-care (01) ==
LOC: ER 04:54
DX: R11.0 Nausea (principal); R19.7 Diarrhea, unspecified; E11.9 Type 2 diabetes mellitus without complications; I10 Essential (primary) hypertension; E78.00 Pure hypercholesterolemia, unspecified; Z72.0 Tobacco use
CPT/HCPCS: 36415; 80053; 81001; 83690; 85025; 96361; 96374; 96375; 99284; J1200; J2765; J7030

== ENCOUNTER 2024-02-17 21:20 | Emergency (ER) | payer OTHER ==
[2024-02-17] MEDS ORDERED: ASPIRIN 81 MG CHEWABLE TABLET ONE (22:15)
--- NOTE | 2024-02-17 22:46 | RAD REPORT ---
EXAMINATION: ONE VIEW CHEST XR CLINICAL INDICATION: Male, 58 years old.,CHEST PAIN TECHNIQUE: Frontal chest projection is submitted. Examination is limited by patient positioning and t echnique. COMPARISON: 05/03/2023 FINDINGS: The lungs are well inflated, with new/progressive central interstitial prominence and suggestion of t race effusions. No pneumothorax or sizable effusion. The heart is normal in size. Mediastinal contours are unremarkable. IMPRESSION: Findings suggesting central congestion/CHF.
[2024-02-17 22:48] LABS: Absolute Basophils 0.1 K/uL (0-0.5); Absolute Eosinophils 0.2 K/uL (0-0.5); Absolute Lymphocytes (CBC) 1.9 K/uL (0.7-4.9); Absolute Monocytes 0.8 K/uL (0.1-1.3); Absolute Neutrophil 4.1 K/uL (1.8-8.0); Basophils % 1.4 % (0-1.3); Eosinophils % 2.2 % (0-4.4); Hematocrit 24.8 % (39.6-49.0); Hemoglobin 7.8 g/dL (13.6-17.9); Lymphocytes % 26.7 % (15.3-44.8); MCH 25.7 pg (27.0-35.0); MCHC 31.3 g/dL (32.0-36.0); MCV 82.1 fL (80-100); MPV 9.3 fL (7.6-11.3); Monocytes % 11.2 % (3.3-12.3); Neutrophils % 58.5 % (41.7-73.7); Nucleated Red Blood Cells % 0.2 % (0-0); Platelets 304 thou/uL (152-406); RBC Red Blood Cell Count 3.03 M/uL (4.33-5.43); Red Cell Distribution Width 19.5 % (12.1-15.2)
[2024-02-17 22:57] LABS: Albumin 3.1 g/dL (3.4-5.0); Albumin/Globulin Ratio 0.8 (1.1-1.8); Anion Gap 7.7 mEq/L (5.0-15.0); Bilirubin Direct 0.2 mg/dL (0-0.2); Bilirubin Indirect, Calculated 0.6 mg/dL (0.2-0.8); Bilirubin Total 0.8 mg/dL (0.2-1.0); Globulin 3.7 g/dL (2.3-3.5); Potassium 3.7 mEq/L (3.5-5.1); Protein, Total 6.8 g/dL (6.4-8.2); Troponin High Sensitivity 4.1 pg/mL (<58.9)
[2024-02-17] MEDS ORDERED: FUROSEMIDE 20 MG/ 2ML VIAL ONE (23:55)
--- NOTE | 2024-02-18 00:39 | ER ---
Nurse's Notes [facility] Name: Jamar Cheng Age: 58 yrs Sex: Male : 1965 Arrival Date: 02/17/2024 Time: 21:20 Bed 14 Private MD: Diagnosis: Hyperglycemia, unspecified;Chest pain, unspecified Presentation: 02/16 22:05 Chief complaint: Patient states: left sided chest pain Spouse and/or significant other vc1 states: this has been going on for 2 weeks. Coronavirus screen: Client denies travel out of the [place] in the last 14 days. At this time, the client does not indicate any symptoms associated with coronavirus-19. Ebola Screen: Patient negative for fever greater than or equal to 101.5 degrees Fahrenheit, and additional compatible Ebola Virus Disease symptoms Patient denies exposure to infectious person. Patient denies travel to an Ebola-affected area in the 21 days before illness onset. No symptoms or risks identified at this time. Initial Sepsis Screen: Does the patient meet any 2 criteria? No. Patient's initial sepsis screen is negative. Does the patient have a suspected source of infection? No. Patient's initial sepsis screen is negative. Risk Assessment: Do you want to hurt yourself or someone else? Patient reports no desire to harm self or others. Note Pt registered with a complaint of High Blood Sugar. Approximately 20 minutes after arrival patients tells registration the patient is now complaining of chest pain. Onset of symptoms is unknown. Care prior to arrival: Medication(s) given: ASA, 81 mg. Activity prior to arrival: None. Mechanism of Injury: No Mechanism of Injury. Transition of care: patient was not received from another setting of care. 22:05 Method Of Arrival: Wheelchair vc1 22:05 Acuity: IRWIN 3 vc1 Triage Assessment: 22:13 General: Appears in no apparent distress. uncomfortable, well groomed, well developed, vc1 well nourished, Behavior is cooperative, appropriate for age, flat, quiet. Pain: Complains of pain in anterior aspect of left upper chest Pain radiates to left jaw and left sternocleidomastoid Pain currently is 6 out of 10 on a pain scale. Quality of pain is described as pressure. EENT: No deficits noted. No signs and/or symptoms were reported regarding the EENT system. Neuro: Level of Consciousness is awake, alert, obeys commands, Oriented to person, place, time, situation, Appropriate for age. Cardiovascular: Reports chest pain, Capillary refill Patient's skin is warm and dry. Respiratory: Airway is patent Respiratory effort is even, unlabored, Respiratory pattern is regular, symmetrical. GI: No deficits noted. No signs and/or symptoms were reported involving the gastrointestinal system. : No deficits noted. No signs and/or symptoms were reported regarding the genitourinary system. Derm: Skin is intact, is healthy with good turgor, Skin is dry, Skin is normal, Skin temperature is warm. Musculoskeletal: Circulation, motion, and sensation intact. Range of motion: intact in all extremities. Historical: - Allergies: 22:11 No Known Allergies; vc1 - PMHx: 22:11 chronic back pain; Diabetes - NIDDM; borderline; Hypercholesterolemia; Hypertension; vc1 Prostate Issue; stroke; - PSHx: 22:11 None; vc1 - Immunization history:: Client reports receiving the 2nd dose of the Covid vaccine, Flu vaccine is not up to date. - Infectious Disease History:: Denies. - Social history:: Smoking status: Patient/guardian denies using tobacco, Stopped _ months ago 0.5. Screenin:12 Abuse screen: Denies threats or abuse. Nutritional screening: No deficits noted. vc1 Tuberculosis screening: No symptoms or risk factors identified. 22:12 [facility] ED Fall Risk Assessment (Adult) History of falling in the last 3 months, vc1 including since admission No falls in past 3 months (0 pts) Confusion or Disorientation No (0 pts) Intoxicated or Sedated No (0 pts) Impaired Gait No (0 pts) Mobility Assist Device Used No (0 pt) Altered Elimination No (0 pt) Score/Fall Risk Level 0 - 2 = Low Risk Oriented to surroundings, Maintained a safe environment, Educated pt \T\ family on fall prevention, incl call for assistance when getting out of bed. Assessment: 22:26 General: Appears in no apparent distress. comfortable, Behavior is calm, cooperative. rg5 Pain: Complains of pain in chest Pain currently is 6 out of 10 on a pain scale. Quality of pain is described as aching, Pain began suddenly. Neuro: Level of Consciousness is awake, alert, obeys commands, Oriented to person, place, time. Cardiovascular: Reports chest pain, Patient's skin is warm and dry. Rhythm is sinus rhythm. Respiratory: Airway is patent Trachea midline Respiratory effort is even, unlabored, Respiratory pattern is regular, symmetrical. GI: Abdomen is round. : No signs and/or symptoms were reported regarding the genitourinary system. EENT: No deficits noted. Derm: Skin is intact, Skin is dry, Skin is normal, Skin temperature is warm. Musculoskeletal: Circulation, motion, and sensation intact. Range of motion: limited in left lower ext \T\ arm. 23:35 Reassessment: Patient and/or family updated on plan of care and expected duration. Pain rg5 level reassessed. Patient is alert, oriented x 3, equal unlabored respirations, skin warm/dry/pink. Vital Signs: 22:05 BP 148 / 90; Pulse 79; Resp 22; Pulse Ox 97% ; Weight 113.4 kg; Height 5 ft. 10 in. ; vc1 Pain 6/10; 22:26 BP 147 / 86; Pulse 80; Resp 17; Pulse Ox 99% on R/A; rg5 23:34 BP 133 / 80; Pulse 77; Resp 17; Pulse Ox 98% on R/A; rg5 02/17 00:30 BP 128 / 78; Pulse 94; Resp 17; Pulse Ox 99% on R/A; rg5 02/16 22:05 Body Mass Index 35.87 (113.40 kg, 177.8 cm) vc1 02/16 22:05 Pain Scale: Adult vc1 ED Course: 02/16 21:25 Patient arrived in ED. gm2 21:26 Josefa Garcia FNP-C is [facility]. kb 21:26 Kory Zhou MD is Attending Physician. kb 21:48 Chadd Pyle RN is Primary Nurse. rg5 22:10 Triage completed. vc1 22:12 Arm band placed on right wrist. vc1 22:13 Patient has correct armband on for positive identification. Bed in low position. Call vc1 light in reach. gluer machine setup operator on. Pulse ox on. NIBP on. 22:18 XRAY Chest (1 view) In Process Unspecified. EDMS 22:26 Inserted saline lock: 20 gauge in right forearm, using aseptic technique. Blood rg5 collected. Flushed with 10 mL NS. 23:35 No provider procedures requiring assistance completed. rg5 02/17 00:45 Provided Education on: post er care. rg5 00:45 IV discontinued, bleeding controlled, No redness/swelling at site. Pressure dressing rg5 applied. Administered Medications: 02/16 22:24 Drug: Aspirin PO Chewable Tablet 324 mg PO once; 81 mg tablets x 4 Route: PO; rg5 23:34 Follow up: Response: No adverse reaction rg5 23:55 Drug: Furosemide IVP 20 mg IVP once; give over 2 minutes Route: IVP; Site: right rg5 antecubital; 02/17 00:29 Follow up: Response: No adverse reaction rg5 Medication: 02/16 22:13 VIS not applicable for this client. vc1 Outcome: 02/17 00:39 Discharge ordered by . kb 00:45 Discharged to home via wheelchair, rg5 00:45 Condition: stable 00:45 Discharge instructions given to patient, family, Instructed on discharge instructions, follow up and referral plans. Demonstrated understanding of instructions, follow-up care, medications, Prescriptions given X 1, 00:51 Patient left the ED. rg5 Signatures: Dispatcher [employer] EDMS Josefa Garcia, MECHANICAL PLANNER-C MECHANICAL PLANNER-Sabra Carnes RN RN vc1 Marlene Angeles gm2 Chadd Pyle, RN RN rg5
--- NOTE | 2024-02-18 00:39 | EDPHYS ---
Physician Documentation [facility] Name: Jamar Cheng Age: 58 yrs Sex: Male : 1965 Arrival Date: 02/17/2024 Time: 21:20 Bed 14 Private MD: ED Physician Kory Zhou HPI: 02/17 00:38 This 58 yrs old Black Male presents to ER via Wheelchair with complaints of High Blood kb Sugar. 00:38 Pt is a 58 year old male who presents for high blood sugar that he noticed this kb evening. Also reports chest pain that started 3 days ago. Denies any aggravating or alleviating factors. Denies shortness of breath. Historical: - Allergies: 02/16 22:11 No Known Allergies; vc1 - PMHx: 22:11 chronic back pain; Diabetes - NIDDM; borderline; Hypercholesterolemia; Hypertension; vc1 Prostate Issue; stroke; - PSHx: 22:11 None; vc1 - Immunization history:: Client reports receiving the 2nd dose of the Covid vaccine, Flu vaccine is not up to date. - Infectious Disease History:: Denies. - Social history:: Smoking status: Patient/guardian denies using tobacco, Stopped _ months ago 0.5. ROS: 22:07 Constitutional: As per HPI kb Exam: 22:01 Constitutional: This is a well developed, well nourished patient who is awake, alert, kb and in no acute distress. Head/Face: Normocephalic, atraumatic. ENT: Moist Mucous membranes Cardiovascular: Regular rate Respiratory: Respirations even and unlabored. No increased work of breathing. Talking in full sentences Abdomen/GI: Soft, non-tender. No distention Skin: Warm, dry with normal turgor. Normal color. MS/ Extremity: Pulses equal, no cyanosis. Neurovascular intact. Full, normal range of motion. Neuro: Awake and alert, GCS 15, oriented to person, place, time, and situation. 22:01 ECG was reviewed by the Attending Physician. Vital Signs: 22:05 BP 148 / 90; Pulse 79; Resp 22; Pulse Ox 97% ; Weight 113.4 kg; Height 5 ft. 10 in. ; vc1 Pain 6/10; 22:26 BP 147 / 86; Pulse 80; Resp 17; Pulse Ox 99% on R/A; rg5 23:34 BP 133 / 80; Pulse 77; Resp 17; Pulse Ox 98% on R/A; rg5 02/17 00:30 BP 128 / 78; Pulse 94; Resp 17; Pulse Ox 99% on R/A; rg5 02/16 22:05 Body Mass Index 35.87 (113.40 kg, 177.8 cm) vc1 02/16 22:05 Pain Scale: Adult vc1 MDM: 02/16 21:26 Medical Screening Exam initiated kb 02/17 00:35 Differential diagnosis: hyperglycemia, acute mi, arrhythmia, pulmonary edema. Data kb reviewed: vital signs, nurses notes. Consideration of Admission/Observation Escalation of care including admission/observation considered. admission considered but pt has been ongoing for days, serial trop normal, pt in no distress. Pt will follow up with PCP. Historians other than the Patient: Spouse/Significant Other: . Care significantly affected by the following chronic conditions: Diabetes, Hypertension. Counseling: I had a detailed discussion with the patient and/or guardian regarding the historical points, exam findings, and any diagnostic results supporting the discharge/admit diagnosis, lab results, radiology results, the need for outpatient follow up, a family practitioner, to return to the emergency department if symptoms worsen or persist or if there are any questions or concerns that arise at home. ED course: and pt report pt has had this kind of pain before and he was given lasix which improved the symptoms. STates they didn't prescribe it for the following days. 02/16 22:01 Order name: Basic Metabolic Panel; Complete Time: 23:27 kb 02/16 22:01 Order name: CBC with Diff; Complete Time: 23:27 kb 02/16 22:01 Order name: LFT's; Complete Time: 23:27 kb 02/16 22:01 Order name: Magnesium; Complete Time: 23:27 kb 02/16 22:01 Order name: NT PRO-BNP; Complete Time: 23:27 kb 02/16 22:01 Order name: Troponin HS; Complete Time: 23:27 kb 02/16 22:06 Order name: Glucose, Ancillary Testing; Complete Time: 22:07 EDMS 02/16 23:41 Order name: Troponin High Sensitivity: draw at 0000 please; Complete Time: 00:35 kb 02/16 22:01 Order name: XRAY Chest (1 view); Complete Time: 23:27 kb 02/16 22:01 Order name: Cardiac monitoring; Complete Time: 22:15 kb 02/16 22:01 Order name: EKG - Nurse/Tech; Complete Time: 22:24 kb 02/16 22:01 Order name: IV Saline Lock; Complete Time: 22:15 kb 02/16 22:01 Order name: Labs collected and sent; Complete Time: 22:15 kb 02/16 22:01 Order name: O2 Per Protocol; Complete Time: 22:15 kb 02/16 22: Order name: O2 Sat Monitoring; Complete Time: 22:15 kb EC/18 22: Rate is 79 beats/min. Rhythm is regular. QRS [place] is Normal. [place] interval is normal at kb 128 msec. QRS interval is normal at 84 msec. QT interval is normal at 435 msec. Administered Medications: 22:24 Drug: Aspirin PO Chewable Tablet 324 mg PO once; 81 mg tablets x 4 Route: PO; rg5 23:34 Follow up: Response: No adverse reaction rg5 23:55 Drug: Furosemide IVP 20 mg IVP once; give over 2 minutes Route: IVP; Site: right rg5 antecubital; 02/17 00:29 Follow up: Response: No adverse reaction rg5 Disposition: 20:32 Co-signature as Attending Physician, Kory Zhou MD I agree with the assessment sp4 and plan of care. I reviewed the patient's care provided by the Advanced Practice Provider and agree with the diagnosis and treatment plan. Disposition Summary: 02/18/24 00:39 Discharge Ordered Notes: Location: Home Condition: Stable kb Diagnosis - Hyperglycemia, unspecified kb - Chest pain, unspecified kb Followup: kb - With: Emergency Department - When: As needed - Reason: Worsening of condition Followup: kb - With: Private Physician - When: 2 - 3 days - Reason: Recheck today's complaints, Continuance of care, Re-evaluation by your physician Discharge Instructions: - Discharge Summary Sheet kb - Nonspecific Chest Pain, Adult, [id number] kb - Hyperglycemia, Znos-[id number] kb - Pulmonary Edema, [id number] kb Forms: - Medication Reconciliation Form kb - Antibiotic Education kb - Prescription Opioid Use kb - Patient Portal Instructions kb - Leadership Thank You Letter kb Prescriptions: - Lasix 20 mg Oral Tablet - take 1 tablet ORAL route once daily; 20 tablet; Refills: 0, Product Selection kb Permitted Signatures: Dispatcher [employer] EDMS Joseaf Garcia, [employer]IAL WORKER-Sabra Carnes, RN RN vc1 Kory Zhou MD MD sp4 Chadd Pyle RN RN rg5 Corrections: (The following items were deleted from the chart) 02/16 22:01 22:01 Chest Single View+RAD.RAD.BRZ ordered. EDMS EDMS 23:41 23:41 Troponin High Sensitivity+C.LAB.BRZ ordered. EDMS EDMS
[2024-02-18 01:17] VITALS: BP 128/78; O2SAT 99
--- NOTE | 2024-02-19 15:43 | EKG ---
Test Date: 2024-02-17 Test Time: 21:54:05 Surgery Aid: AF MEASUREMENT RESULTS: Intervals: Rate: 79 [place]: 128 QRSD: 84 QT: 380 QTc: 435 [place]: P: 38 [place]: 128 QRS: 40 T: 50 INTERPRETIVE STATEMENTS: Normal sinus rhythm Normal ECG Compared to ECG 05/03/2023 17:22:12 Sinus tachycardia no longer present Myocardial infarct finding no longer present Electronically Signed On 02-19-24 15:42:10 REAL ESTATE OFFICER by Kike Scott
== END 2024-02-18 00:51 | disposition home or self-care (01) ==
LOC: ER 21:20
DX: E11.65 Type 2 diabetes mellitus with hyperglycemia (principal); R07.9 Chest pain, unspecified; E78.00 Pure hypercholesterolemia, unspecified; I10 Essential (primary) hypertension; M54.9 Dorsalgia, unspecified
CPT/HCPCS: 93005; 85025; 80048; 36415; 83735; 82947; 80076; 84484 ×2; 83880; 71045; 96374; 99285; J1940

== ENCOUNTER 2024-05-10 18:46 | Emergency (ER) | payer OTHER ==
[2024-05-10] MEDS ORDERED: ASPIRIN 81 MG CHEWABLE TABLET ONE (19:52)
[2024-05-10 20:02] LABS: Absolute Basophils 0.1 K/uL (0-0.5); Absolute Eosinophils 0.2 K/uL (0-0.5); Absolute Lymphocytes (CBC) 2.6 K/uL (0.7-4.9); Absolute Monocytes 0.6 K/uL (0.1-1.3); Absolute Neutrophil 3.1 K/uL (1.8-8.0); Basophils % 1.3 % (0-1.3); Eosinophils % 2.9 % (0-4.4); Hematocrit 34.1 % (39.6-49.0); Lymphocytes % 39.7 % (15.3-44.8); MCH 25.9 pg (27.0-35.0); MCHC 32.4 g/dL (32.0-36.0); MPV 9.8 fL (7.6-11.3); Monocytes % 9.1 % (3.3-12.3); Nucleated Red Blood Cells % 0.1 % (0-0); Platelets 170 thou/uL (152-406); RBC Red Blood Cell Count 4.27 M/uL (4.33-5.43); Red Cell Distribution Width 24.2 % (12.1-15.2)
--- NOTE | 2024-05-10 20:10 | RAD REPORT ---
EXAMINATION: ONE VIEW CHEST XR CLINICAL INDICATION: CHEST PAIN TECHNIQUE: Frontal chest projection is submitted. Examination is limited by patient positioning and t echnique. COMPARISON: 02/17/2024 FINDINGS: Mild bilateral pulmonary edema is suspected. The heart is upper limit of normal in size. No displaced fractures identified. IMPRESSION: Mild CHF versus volume overload pattern is suspected.
[2024-05-10] MEDS ORDERED: FENTANYL CITR 100 MCG/2 ML ONE (20:16)
--- NOTE | 2024-05-10 20:16 | RAD REPORT ---
EXAM: CT brain without contrast HISTORY: HEADACHE COMPARISON: 05/03/2023 TECHNIQUE: Multiple contiguous axial images were obtained and a CT of the brain without contrast. Sag ittal and coronal reformats were performed. One or more of the following dose reduction techniques were used: Automated exposure control, adjust ment of the mA and/or kV according to patient size, and/or iterative reconstruction. FINDINGS: No evidence of hydrocephalus, intracranial hemorrhage, or extra-axial fluid collection. Areas of gliosis seen in the left frontal lobe compatible with remote infarctions. No evidence of mi dline shift or areas of brain edema. The calvarium is intact. The visualized paranasal sinuses and mastoid air cells are essentially clear except for right frontal sinus. IMPRESSION: No evidence of acute intracranial abnormality.
[2024-05-10 21:03] LABS: Anion Gap 6.6 mEq/L (5.0-15.0); Potassium 3.6 mEq/L (3.5-5.1); Troponin High Sensitivity 3.5 pg/mL (<58.9)
[2024-05-10 22:06] LABS: Anisocytosis 2+; Blood Morphology Comment NOTED (NOT SEEN); Microcytosis 1+; Ovalocytes 2+; Platelet Estimate ADEQ; White Blood Cell Scan OK (OK)
--- NOTE | 2024-05-10 23:39 | ER ---
Nurse's Notes [facility] Name: Jamar Cheng Age: 58 yrs Sex: Male : 1965 Arrival Date: 05/10/2024 Time: 18:46 Bed 14 Private MD: Diagnosis: Chest pain, unspecified;Sleep apnea Presentation: 05/10 18:56 Chief complaint: Spouse and/or significant other states: patient has been having chest ap3 pain "for months, since his stroke last year." but she reports that the patient has recently been feeling unwell, and having dizziness and nausea the last few days. patient reports he has also been having some cough and congestion. Coronavirus screen: At this time, the client does not indicate any symptoms associated with coronavirus-19. Ebola Screen: No symptoms or risks identified at this time. Initial Sepsis Screen: Does the patient meet any 2 criteria? No. Patient's initial sepsis screen is negative. Does the patient have a suspected source of infection? No. Patient's initial sepsis screen is negative. Risk Assessment: Do you want to hurt yourself or someone else? Patient reports no desire to harm self or others. Onset of symptoms is unknown. 18:56 Method Of Arrival: Ambulatory ap3 18:56 Acuity: IRWIN 2 ap3 Triage Assessment: 18:58 General: Appears in no apparent distress. Behavior is calm, cooperative, appropriate ap3 for age. Pain: Complains of pain in chest. Neuro: Level of Consciousness is awake, alert, obeys commands, Oriented to person, place, time, situation, Appropriate for age. Neuro: Reports dizziness. Cardiovascular: Reports chest pain, since may 2023 Patient's skin is warm and dry. Respiratory: Airway is patent Respiratory effort is even, unlabored, Respiratory pattern is regular, symmetrical. GI: Reports nausea. Historical: - Allergies: 18:57 No Known Allergies; ap3 - PMHx: 18:57 chronic back pain; Diabetes - NIDDM; borderline; Hypercholesterolemia; Hypertension; ap3 Prostate Issue; stroke; - Immunization history:: Client reports receiving the 2nd dose of the Covid vaccine. - Infectious Disease History:: Denies. - Social history:: Smoking status: Patient denies any tobacco usage or history of. Screenin:59 Abuse screen: Denies threats or abuse. Nutritional screening: No deficits noted. ap3 Tuberculosis screening: No symptoms or risk factors identified. 20:19 [facility] ED Fall Risk Assessment (Adult) History of falling in the last 3 months, kd4 including since admission No falls in past 3 months (0 pts) Confusion or Disorientation No (0 pts) Intoxicated or Sedated No (0 pts) Impaired Gait No (0 pts) Mobility Assist Device Used No (0 pt) Altered Elimination No (0 pt) Score/Fall Risk Level 0 - 2 = Low Risk Oriented to surroundings, Maintained a safe environment. Assessment: 20:19 Pain: Pain does not radiate. Pain currently is 6 out of 10 on a pain scale. Quality of kd4 pain is described as Pain began 4 hours ago. Neuro: No deficits noted. Denies dizziness, difficulty swallowing, headache. Cardiovascular: Reports chest pain, Denies shortness of breath. Respiratory: No deficits noted. GI: No signs and/or symptoms were reported involving the gastrointestinal system. : No signs and/or symptoms were reported regarding the genitourinary system. 22:21 General: [place] given to patient per request. kd4 Vital Signs: 18:56 BP 143 / 86; Pulse 64; Resp 18; Temp 98.4; Pulse Ox 94% ; Weight 117.48 kg; ap3 20:57 Pain 3/10; kd4 03/12 00:04 BP 128 / 90; Pulse 58; Resp 18; Temp 97.3; Pulse Ox 98% on R/A; Pain 0/10; kd4 20:57 Pain Scale: Adult kd4 03/12 00:04 Pain Scale: Adult kd4 Jeanne Coma Score: 05/10 20:19 Eye Response: spontaneous(4). Motor Response: obeys commands(6). Verbal Response: kd4 oriented(5). Total: 15. 03/12 00:04 Eye Response: spontaneous(4). Motor Response: obeys commands(6). Verbal Response: kd4 oriented(5). Total: 15. ED Course: 05/10 18:51 Patient arrived in ED. im 18:57 Triage completed. ap3 18:59 Patient maintains SpO2 saturation greater than 95% on room air. ap3 18:59 Arm band placed on right wrist. ap3 19:09 Karie Priest, MELISSA is Primary Nurse. kd4 19:20 EKG done, by ED staff, reviewed by Henry Maurer MD. oe 19:29 Henry Maurer MD is Attending Physician. jj9 20:03 XRAY Chest (1 view) In Process Unspecified. EDMS 20:11 CT Head Brain wo Cont In Process Unspecified. EDMS 20:19 Initial lab(s) drawn, by me, X-ray(s) taken. ekg done. Inserted saline lock: 20 gauge kd4 in right antecubital area, using aseptic technique. 20:19 Client placed on continuous cardiac and pulse oximetry monitoring. NIBP monitoring kd4 applied. engine monitor on. Pulse ox on. NIBP on. 20:41 Attending Physician role handed off by Henry Maurer MD sp4 20:41 Kory Zhou MD is Attending Physician. sp4 23:01 Troponin High Sensitivity Sent. kd4 03 00:04 No provider procedures requiring assistance completed. IV discontinued, intact. kd4 00:04 Patient has correct armband on for positive identification. Side rails up X2. Provided kd4 Education on: d/c instruction. Administered Medications: 05/10 19:53 Drug: Aspirin PO Chewable Tablet 324 mg PO once; 81 mg tablets x 4 Route: PO; kd4 21:14 Follow up: Response: No adverse reaction kd4 20:19 Drug: fentaNYL (PF) IVP 50 mcg IVP once Route: IVP; Site: right antecubital; kd4 21:13 Follow up: Response: No adverse reaction kd4 Medication: 05/11 00:04 VIS not applicable for this client. kd4 Outcome: 05/10 23:38 Discharge ordered by . sp4 05/11 00:04 Discharged to home ambulatory, with family, kd4 Condition: stable Discharge instructions given to patient, Instructed on discharge instructions, follow up and referral plans. Demonstrated understanding of instructions, follow-up care, 00:06 Patient left the ED. kd4 Signatures: Dispatcher [employer] EDMN Kyler Cummins Amanda, RN RN ap3 Kory Zhou MD MD sp4 Carmina Cross Karim RN RN kd4 Henry Maurer MD MD jj9
--- NOTE | 2024-05-10 23:39 | EDPHYS ---
Physician Documentation [facility] Name: Jamar Cheng Age: 58 yrs Sex: Male : 1965 Arrival Date: 05/10/2024 Time: 18:46 Bed 14 Private MD: ED Physician Kory Zhou HPI: 05/10 23:40 This 58 yrs old Black Male presents to ER via Ambulatory with complaints of Chest Pain, sp4 Nausea. 19:49 58-year-old man comes emergency department complaining of chest pain since 3 PM this jj9 afternoon. Pain is achy left-sided nonradiating. The patient also reports headache about the same time. He reports history of CVA, type 2 diabetes, hypertension, hyperlipidemia, and prostate problems. The patient had a stroke in 2023. He denies fever, chills, nausea, vomiting, abdominal pain or any other problem. Mild cough also today.. 23:40 Patient's home medications include furosemide, Protonix, lisinopril, metoprolol, sp4 Flomax, aspirin, atorvastatin.. Historical: - Allergies: 18:57 No Known Allergies; ap3 - PMHx: 18:57 chronic back pain; Diabetes - NIDDM; borderline; Hypercholesterolemia; Hypertension; ap3 Prostate Issue; stroke; - Immunization history:: Client reports receiving the 2nd dose of the Covid vaccine. - Infectious Disease History:: Denies. - Social history:: Smoking status: Patient denies any tobacco usage or history of. ROS: 19:50 Constitutional: Negative for fever, chills, and weight loss, Eyes: Negative for injury, jj9 pain, redness, and discharge, ENT: Negative for injury, pain, and discharge, Neck: Negative for injury, pain, and swelling, Cardiovascular: Chest pain Respiratory: Negative for shortness of breath, cough, wheezing, and pleuritic chest pain, Abdomen/GI: Negative for abdominal pain, nausea, vomiting, diarrhea, and constipation, MS/Extremity: Negative for injury and deformity, Skin: Negative for injury, rash, and discoloration, Neuro: Headache Allergy/Immunology: Negative for hives, rash, and allergies, Hematologic/Lymphatic: Negative for swollen nodes, abnormal bleeding, and unusual bruising, Exam: 19:50 Constitutional: This is a well developed, well nourished patient who is awake, alert, jj9 and in no acute distress. Head/Face: Normocephalic, atraumatic. Eyes: Pupils equal round and reactive to light, extra-ocular motions intact. Lids and lashes normal. Conjunctiva and sclera are non-icteric and not injected. Cornea within normal limits. Periorbital areas with no swelling, redness, or edema. ENT: Nares patent. No nasal discharge, no septal abnormalities noted. Tympanic membranes are normal and external auditory canals are clear. Oropharynx with no redness, swelling, or masses, exudates, or evidence of obstruction, uvula midline. Mucous membranes moist. Neck: Trachea midline, no thyromegaly or masses palpated, and no cervical lymphadenopathy. Supple, full range of motion without nuchal rigidity, or vertebral point tenderness. No Meningismus. Chest/axilla: Normal chest wall appearance and motion. Nontender with no deformity. No lesions are appreciated. Cardiovascular: Regular rate and rhythm with a normal S1 and S2. No gallops, murmurs, or rubs. Normal PMI, no JVD. No pulse deficits. Respiratory: Lungs have equal breath sounds bilaterally, clear to auscultation and percussion. No rales, rhonchi or wheezes noted. No increased work of breathing, no retractions or nasal flaring. Abdomen/GI: Soft, non-tender, with normal bowel sounds. No distension or tympany. No guarding or rebound. No evidence of tenderness throughout. Skin: Warm, dry with normal turgor. Normal color with no rashes, no lesions, and no evidence of cellulitis. MS/ Extremity: Pulses equal, no cyanosis. Neurovascular intact. Full, normal range of motion. Neuro: Awake and alert, GCS 15, oriented to person, place, time, and situation. Cranial nerves II-XII grossly intact. Motor strength 5/5 in all extremities. Sensory grossly intact. Cerebellar exam normal. Normal gait. 19:52 ECG was reviewed by the Attending Physician. Normal sinus rhythm, rate of 74, no ST-T jj9 changes, normal EKG 22:59 EKG at 1914 normal sinus rhythm rate 74. sp4 Vital Signs: 18:56 BP 143 / 86; Pulse 64; Resp 18; Temp 98.4; Pulse Ox 94% ; Weight 117.48 kg; ap3 20:57 Pain 3/10; kd4 05/11 00:04 BP 128 / 90; Pulse 58; Resp 18; Temp 97.3; Pulse Ox 98% on R/A; Pain 0/10; kd4 20:57 Pain Scale: Adult kd4 05/11 00:04 Pain Scale: Adult kd4 Jeanne Coma Score: 05/10 20:19 Eye Response: spontaneous(4). Motor Response: obeys commands(6). Verbal Response: kd4 oriented(5). Total: 15. 05/11 00:04 Eye Response: spontaneous(4). Motor Response: obeys commands(6). Verbal Response: kd4 oriented(5). Total: 15. MDM: 05/10 19:29 Medical Screening Exam initiated jj9 19:52 Transition of care: After a detail discussion of the patient's case, care is jj9 transferred to Kory Zhou MD. 19:53 ED course: 58-year-old man comes emergency department complaining of chest pain and jj9 headache for the last 3 to 4 hours. The patient reports symptoms have been persistent. reports this pain has happened in the past. The patient history of diabetes, hypertension and CVA in 2023. He denies fever chills, nausea or vomiting. Workup has been initiated including CBC, CMP, troponin, CT scan of the head, chest x-ray and pain medications. The case was signed out to incoming physician pending labs imaging and final disposition.. 22:32 ED course: HISTORY: HEADACHE COMPARISON: 05/03/2023 TECHNIQUE: Multiple contiguous axial sp4 images were obtained and a CT of the brain without contrast. Sagittal and coronal reformats were performed. One or more of the following dose reduction techniques were used: Automated exposure control, adjustment of the mA and/or kV according to patient size, and/or iterative reconstruction. FINDINGS: No evidence of hydrocephalus, intracranial hemorrhage, or extra-axial fluid collection. Areas of gliosis seen in the left frontal lobe compatible with remote infarctions. No evidence of midline shift or areas of brain edema. The calvarium is intact. The visualized paranasal sinuses and mastoid air cells are essentially clear except for right frontal sinus. IMPRESSION: No evidence of acute intracranial abnormality. . ED course: CLINICAL INDICATION: CHEST PAIN TECHNIQUE: Frontal chest projection is submitted. Examination is limited by patient positioning and technique. COMPARISON: 02/17/2024 FINDINGS: Mild bilateral pulmonary edema is suspected. The heart is upper limit of normal in size. No displaced fractures identified. IMPRESSION: Mild CHF versus volume overload pattern is suspected.. 23:40 Differential diagnosis: acute pericarditis, anxiety, coronary artery disease chest wall sp4 pain, congestive heart failure. HEART Score: History: Moderately Suspicious (1), ECG: Normal (0), Age: > 45 and < 65 years (1), Risk Factors: > or = 3 Risk factors for atherosclerotic disease (2), Troponin: < or = 1 x Normal Limit (0), Total Score = 4. The patient was not given aspirin in the Emergency Department. Patient reports taking aspirin within the past 24 hours. Data reviewed: vital signs, nurses notes, old medical records, lab test result(s), EKG, radiologic studies, plain films. Consideration of Admission/Observation Escalation of care including admission/observation considered. ED course: Patient discharged home in stable condition.. 05/10 19:48 Order name: Basic Metabolic Panel; Complete Time: 22: [facility] 05/10 19:48 Order name: CBC with Diff; Complete Time: 22: 05/10 19:48 Order name: NT PRO-BNP; Complete Time: 22: 05/10 19:48 Order name: Troponin HS; Complete Time: 22: 05/10 21:58 Order name: CBC Smear Scan; Complete Time: 22:31 EDMS 05/10 22:41 Order name: Troponin High Sensitivity; Complete Time: 23:36 sp4 05/10 19:48 Order name: XRAY Chest (1 view); Complete Time: 22:31 05/10 19:48 Order name: CT Head Brain wo Cont; Complete Time: 22:31 [facility] 05/10 19:48 Order name: EKG; Complete Time: 19:48 [facility] 05/10 19:48 Order name: Cardiac monitoring; Complete Time: 19:51 05/10 19:48 Order name: EKG - Nurse/Tech; Complete Time: 19:51 05/10 19:48 Order name: IV Saline Lock; Complete Time: 19:53 05/10 19:48 Order name: Labs collected and sent; Complete Time: 19:53 jj9 03/11 19:48 Order name: O2 Sat Monitoring; Complete Time: EC: Rate is 74 beats/min. Rhythm is regular, Normal Sinus Rhythm. QRS [place] is Normal. [place] sp4 interval is normal. QRS interval is normal. QT interval is normal. No Q waves. T waves are Normal. No ST changes noted. Clinical impression: Normal ECG. Reviewed by me. Administered Medications: Drug: Aspirin PO Chewable Tablet 324 mg PO once; 81 mg tablets x 4 Route: PO; kd4 21:14 Follow up: Response: No adverse reaction kd4 20:19 Drug: fentaNYL (PF) IVP 50 mcg IVP once Route: IVP; Site: right antecubital; kd4 21:13 Follow up: Response: No adverse reaction kd4 Disposition Summary: 05/10/24 23:38 Discharge Ordered Problem: new sp4 Symptoms: have improved sp4 Condition: Stable sp4 Diagnosis - Chest pain, unspecified sp4 - Sleep apnea sp4 Followup: sp4 - With: Private Physician - When: 7 - 10 days - Reason: Recheck today's complaints Discharge Instructions: - Discharge Summary Sheet sp4 - Nonspecific Chest Pain, Adult, [id number] sp4 Forms: - Patient Portal Instructions sp4 Signatures: Dispatcher [employer] Moira Hyde RN RN ap3 Kory Zhou MD MD sp4 Karie Priest RN RN kd4 Henry Maurer MD MD jj9
[2024-05-11 00:50] VITALS: BP 128/90; TEMP 97.3; O2SAT 98
--- NOTE | 2024-05-13 14:50 | EKG ---
Test Date: 2024-05-10 Test Time: 19:14:00 Brewing Director: NOHELIA MEASUREMENT RESULTS: Intervals: Rate: 74 [place]: 132 QRSD: 88 QT: 394 QTc: 437 [place]: P: 48 IN: 132 QRS: 61 T: 58 INTERPRETIVE STATEMENTS: Normal sinus rhythm Normal ECG Compared to ECG 02/17/2024 21:54:05 No significant changes Electronically Signed On 05-13-24 14:43:28 CDT by Kike Scott
== END 2024-05-11 00:06 | disposition home or self-care (01) ==
LOC: ER 18:46
DX: R07.9 Chest pain, unspecified (principal); G47.30 Sleep apnea, unspecified; R51.9 Headache, unspecified; I10 Essential (primary) hypertension; Z86.73 Personal history of transient ischemic attack (TIA), and cerebral infarction without residual deficits
CPT/HCPCS: 93005; 85025; 80048; 36415; 84484 ×2; 83880; 70450; 71045; 96374; 99285; J3010

== ENCOUNTER 2024-11-28 11:54 | Emergency (ER) | payer OTHER ==
[2024-11-28 12:53] LABS: Absolute Lymphocytes (CBC) 1.9 K/uL (0.7-4.9); Hematocrit 39.3 % (39.6-49.0); Hemoglobin 12.8 g/dL (13.6-17.9); MCH 29.0 pg (27.0-35.0); MCHC 32.5 g/dL (32.0-36.0); MCV 89.2 fL (80-100); MPV 9.9 fL (7.6-11.3); Nucleated RBC Absolute Count 0.0 (0-0); Nucleated Red Blood Cells % 0.1 % (0-0); RBC Red Blood Cell Count 4.41 M/uL (4.33-5.43); White Blood Count 5.30 thou/uL (4.3-10.9)
[2024-11-28 12:59] LABS: PT Prothrombin Time 13.1 SECONDS (10-13.0); Protime INR 1.16
--- NOTE | 2024-11-28 13:08 | RAD REPORT ---
Procedure: Chest Single View HISTORY: Chest pain COMPARISON: April 2024 FINDINGS: Upper lobe vessels prominent indicative of pulmonary venous hypertension Lungs probably are clear. Heart is mildly enlarged
[2024-11-28 13:13] LABS: ALT/SGPT 22.0 U/L (16-61); AST/SGOT 14.0 U/L (15-37); Albumin 3.3 g/dL (3.4-5.0); Albumin/Globulin Ratio 0.9 (1.1-1.8); Alkaline Phosphatase 70.0 U/L (45-117); Anion Gap 7.0 mEq/L (5.0-15.0); BUN Blood Urea Nitrogen 16.0 mg/dL (7-18); Bilirubin Indirect, Calculated 0.8 mg/dL (0.2-0.8); Globulin 3.8 g/dL (2.3-3.5); Glucose Level 116.0 mg/dL (74-106); Magnesium 2.1 mg/dL (1.6-2.4); NT PRO-BNP 15.0 pg/mL (<125); Potassium 4.0 mEq/L (3.5-5.1); Troponin High Sensitivity 4.4 pg/mL (<58.9)
--- NOTE | 2024-11-28 13:25 | RAD REPORT ---
EXAM: CT brain without contrast HISTORY: Left numbness COMPARISON: April 2024 TECHNIQUE: Multiple contiguous axial images were obtained and a CT of the brain without contrast.. Sagittal and coronal reconstruction performed. Automated exposure control, adjustment of the mA and/or kV according to patient size, and/or iterative reconstruction. Unless otherwise specified, incidental f indings do not require dedicated imaging follow-up FINDINGS: An intracranial bleed is not seen Ventricles are normal caliber No extra-axial fluid collection noted 5 cm low-density area left frontal lobe compatible with old infarction. No fluid within the visualized sinuses or mastoids noted. IMPRESSION: No acute intracranial abnormality noted. If the patient continues to have symptoms to suggest an acute intracranial abnormality then MRI of th e brain would be recommended.
[2024-11-28] MEDS ORDERED: ONDANSETRON 4 MG/2 ML VIAL ONE (14:03)
[2024-11-28] MEDS ORDERED: HYDROMORPHONE HCL 1 MG/ML INJ ONE (14:03)
--- NOTE | 2024-11-28 14:10 | ER ---
Nurse's Notes [facility] Name: Jamar Cheng Age: 59 yrs Sex: Male : 1965 Arrival Date: 11/28/2024 Time: 11:54 Bed 23 Private MD: Diagnosis: Chest pain, paresthesia Presentation: 11/28 11:58 Chief complaint: Patient states: CHEST PAIN THAT STARTED JOHNY AND LT SIDED NUMBNESS dd2 THAT BEGAN LAST NIGHT. PT REPORTS TAKING INDOMETHACIN FOR THE CHEST WITH NO RELIEF. PT REPORTS HX OF CVA. Coronavirus screen: At this time, the client does not indicate any symptoms associated with coronavirus-19. Ebola Screen: No symptoms or risks identified at this time. Initial Sepsis Screen: Does the patient meet any 2 criteria? No. Patient's initial sepsis screen is negative. Does the patient have a suspected source of infection? No. Patient's initial sepsis screen is negative. Risk Assessment: Do you want to hurt yourself or someone else? Patient reports no desire to harm self or others. Onset of symptoms was November 25, 2024. 11:58 Method Of Arrival: Ambulatory dd2 11:58 Acuity: IRWIN 3 dd2 Triage Assessment: 12:02 General: Appears uncomfortable, Behavior is calm, cooperative, appropriate for age. dd2 Pain: Complains of pain in anterior aspect of left upper chest and left leg Pain radiates to anterior aspect of left shoulder and left bicep Pain currently is 7 out of 10 on a pain scale. Neuro: Reports numbness in left arm and left leg. Cardiovascular: Reports chest pain. Musculoskeletal: Reports pain in left arm and left leg. Historical: - Allergies: 12:02 No Known Allergies; dd2 - PMHx: 12:02 chronic back pain; Diabetes - NIDDM; borderline; Hypercholesterolemia; Hypertension; dd2 Prostate Issue; stroke; - PSHx: 12:02 None; dd2 - Immunization history:: Adult Immunizations unknown. - Infectious Disease History:: Denies. - Social history:: Smoking status: Patient reports the use of cigarette tobacco products, denies chronic smoking, but will smoke occasionally. Screenin:48 [facility] ED Fall Risk Assessment (Adult) History of falling in the last 3 months, kj2 including since admission No falls in past 3 months (0 pts) Confusion or Disorientation No (0 pts) Intoxicated or Sedated No (0 pts) Impaired Gait No (0 pts) Mobility Assist Device Used No (0 pt) Altered Elimination No (0 pt) Score/Fall Risk Level 0 - 2 = Low Risk Maintained a safe environment, Hourly rounding (assess needs \T\ fall precautionary measures) done. Abuse screen: Denies threats or abuse. Denies injuries from another. Nutritional screening: No deficits noted. Tuberculosis screening: No symptoms or risk factors identified. Assessment: 12:10 General: Appears in no apparent distress. Behavior is calm, cooperative. Pain: kj2 Complains of pain in left arm and left bicep and left leg and chest Pain began 2-3 days ago. Pain: Pain currently is 6 out of 10 on a pain scale. Neuro: Level of Consciousness is awake, alert, obeys commands, Oriented to person, place, time, situation. Cardiovascular: Patient's skin is warm and dry. Respiratory: Airway is patent Respiratory effort is unlabored. GI: No signs and/or symptoms were reported involving the gastrointestinal system. 13:00 Reassessment: Patient appears in no apparent distress at this time. Patient and/or kj2 family updated on plan of care and expected duration. Pain level reassessed. Patient is alert, oriented x 3, equal unlabored respirations, skin warm/dry/pink. 14:08 Reassessment: Patient appears in no apparent distress at this time. Patient and/or kj2 family updated on plan of care and expected duration. Pain level reassessed. Patient is alert, oriented x 3, equal unlabored respirations, skin warm/dry/pink. Vital Signs: 11:58 BP 131 / 85; Pulse 68; Resp 16; Temp 98.3; Pulse Ox 100% on R/A; Weight 117.93 kg; Pain dd2 7/10; 13:00 BP 127 / 79; Pulse 62; Resp 18; Pulse Ox 100% on R/A; kj2 14:08 BP 122 / 81; Pulse 61; Resp 20; Pulse Ox 100% on R/A; kj2 11:58 Pain Scale: Adult dd2 ED Course: 11:56 Patient arrived in ED. cj3 12:02 Triage completed. dd2 12:02 Arm band placed on right wrist. dd2 12:03 Keanu Crespo MD is Attending Physician. sp3 12:06 Daniella Vicente, RN is Primary Nurse. kj2 12:10 Patient has correct armband on for positive identification. Bed in low position. Call kj2 light in reach. Adult w/ patient. Provided Education on: call light. Client placed on continuous cardiac and pulse oximetry monitoring. NIBP monitoring applied. tower crane operator on. Pulse ox on. 12:10 No provider procedures requiring assistance completed. Patient maintains SpO2 kj2 saturation greater than 95% on room air. 12:45 Inserted saline lock: 20 gauge in left forearm, using aseptic technique. Blood kj2 collected. Flushed with 10 mL NS. 12:53 XRAY Chest (1 view) In Process Unspecified. EDMS 13:14 CT Head Brain wo Cont In Process Unspecified. EDMS 14:26 IV discontinued, intact, bleeding controlled, No redness/swelling at site. Pressure kj2 dressing applied. Administered Medications: 14:07 Drug: HYDROmorphone IVP 1 mg IVP once Route: IVP; Site: left forearm; kj2 14:37 Follow up: Response: No adverse reaction kj2 14:07 Drug: Ondansetron IVP 4 mg IVP once; over 2 minutes Route: IVP; Site: left forearm; kj2 14:37 Follow up: Response: No adverse reaction kj2 Medication: 14:26 VIS not applicable for this client. kj2 Outcome: 14:10 Discharge ordered by MD. proctor 14:26 Discharged to home ambulatory, with family, kj2 14:26 Condition: stable 14:26 Discharge instructions given to patient, family, Instructed on discharge instructions, follow up and referral plans. Demonstrated understanding of instructions, follow-up care, 14:44 Patient left the ED. kj2 Signatures: Dispatcher [employer] Keanu Womack MD MD sp3 Daniella Vicente, RN RN kj2 ADRIAN VERDIN RN RN dd2 Shey Fernandez cj3
--- NOTE | 2024-11-28 14:10 | EDPHYS ---
Physician Documentation [facility] Name: Jamar Cheng Age: 59 yrs Sex: Male : 1965 Arrival Date: 11/28/2024 Time: 11:54 Bed 23 Private MD: ED Physician Keanu Crespo HPI: 11/28 13:16 This 59 yrs old Black Male presents to ER via Ambulatory with complaints of Chest Pain, sp3 Numbness - LT ARM LEG. 13:16 59-year-old male with history of prior CVA, chronic back pain, diabetes, sp3 hyperlipidemia, presents to the ED with chief complaint chest pain of the left shoulder. He also states he has some mild numbness on his left upper extremity and left lower extremity. Mild headache reported as well. Symptoms started approximately 4 days ago. He denies any speech changes, weakness, shortness of breath, back pain, abdominal pain nausea, vomit, diarrhea, syncope, near syncope, fever, known sick contacts, travel history, URI symptoms, or any other signs or symptoms on ROS at this time.. Historical: - Allergies: 12:02 No Known Allergies; dd2 - PMHx: 12:02 chronic back pain; Diabetes - NIDDM; borderline; Hypercholesterolemia; Hypertension; dd2 Prostate Issue; stroke; - PSHx: 12:02 None; dd2 - Immunization history:: Adult Immunizations unknown. - Infectious Disease History:: Denies. - Social history:: Smoking status: Patient reports the use of cigarette tobacco products, denies chronic smoking, but will smoke occasionally. ROS: 13:17 Constitutional: Negative for fever, chills, and weight loss, Eyes: Negative for injury, sp3 pain, redness, and discharge, Neck: Negative for injury, pain, and swelling, Respiratory: Negative for shortness of breath, cough, wheezing, and pleuritic chest pain, Abdomen/GI: Negative for abdominal pain, nausea, vomiting, diarrhea, and constipation, Back: Negative for injury and pain, MS/Extremity: Negative for injury and deformity, Skin: Negative for injury, rash, and discoloration, Psych: Negative for depression, anxiety, suicide ideation, homicidal ideation, and hallucinations, Allergy/Immunology: Negative for hives, rash, and allergies, Endocrine: Negative for neck swelling, polydipsia, polyuria, polyphagia, and marked weight changes, Hematologic/Lymphatic: Negative for swollen nodes, abnormal bleeding, and unusual bruising, 13:17 All other systems are negative, Exam: 13:18 Constitutional: This is a well developed, well nourished patient who is awake, alert, sp3 and in no acute distress. Head/Face: Normocephalic, atraumatic. Eyes: Pupils equal round and reactive to light, extra-ocular motions intact. Lids and lashes normal. Conjunctiva and sclera are non-icteric and not injected. Cornea within normal limits. Periorbital areas with no swelling, redness, or edema. Neck: Trachea midline, no thyromegaly or masses palpated, and no cervical lymphadenopathy. Supple, full range of motion without nuchal rigidity, or vertebral point tenderness. No Meningismus. Chest/axilla: Normal chest wall appearance and motion. Nontender with no deformity. No lesions are appreciated. Cardiovascular: Regular rate and rhythm with a normal S1 and S2. No gallops, murmurs, or rubs. Normal PMI, no JVD. No pulse deficits. Respiratory: Lungs have equal breath sounds bilaterally, clear to auscultation and percussion. No rales, rhonchi or wheezes noted. No increased work of breathing, no retractions or nasal flaring. Abdomen/GI: Soft, non-tender, with normal bowel sounds. No distension or tympany. No guarding or rebound. No evidence of tenderness throughout. Back: No spinal tenderness. No costovertebral tenderness. Full range of motion. Skin: Warm, dry with normal turgor. Normal color with no rashes, no lesions, and no evidence of cellulitis. MS/ Extremity: Pulses equal, no cyanosis. Neurovascular intact. Full, normal range of motion. Neuro: Awake and alert, GCS 15, oriented to person, place, time, and situation. Cranial nerves II-XII grossly intact. Motor strength 5/5 in all extremities. Sensory grossly intact. Cerebellar exam normal. Normal gait. Psych: Awake, alert, with orientation to person, place and time. Behavior, mood, and affect are within normal limits. 13:18 ECG was reviewed by the Attending Physician. EKG demonstrates normal sinus rhythm at 64 bpm with normal intervals, normal QRS, normal axis and normal ST/T-segment's without evidence of acute ischemia. 13:18 Neuro: Normal neurological exam., Vital Signs: 11:58 BP 131 / 85; Pulse 68; Resp 16; Temp 98.3; Pulse Ox 100% on R/A; Weight 117.93 kg; Pain dd2 7/10; 13:00 BP 127 / 79; Pulse 62; Resp 18; Pulse Ox 100% on R/A; kj2 14:08 BP 122 / 81; Pulse 61; Resp 20; Pulse Ox 100% on R/A; kj2 11:58 Pain Scale: Adult dd2 MDM: 12:11 Medical Screening Exam initiated sp3 13:20 Data reviewed: vital signs, nurses notes, old medical records, lab test result(s), EKG, sp3 radiologic studies. ED course: 59-year-old male with PMH above now with chest pain and left-sided numbness for 4 days. Differential diagnosis includes acute coronary syndrome, cervical radiculopathy, dehydration, TIA/CVA spectrum though unlikely, among others. Workup will include CT scan of the head, EKG, chest x-ray, general labs, and general supportive care. Vital signs are normal. Disposition pending workup and patient course of probable discharge home if full workup is negative.. 14:08 ED course: Full workup negative including CT. No safe discharge patient home with sp3 follow-up to PCP. Given 4 days of symptoms off and on and negative troponin and CT, I believe patient is stable for discharge.. 11/28 12:12 Order name: Basic Metabolic Panel; Complete Time: 13: 3 11/28 12:12 Order name: CBC with Diff; Complete Time: 13: sp3 11/28 12:12 Order name: LFT's; Complete Time: 13: sp3 11/28 12:12 Order name: Magnesium; Complete Time: 13: sp3 11/28 12:12 Order name: NT PRO-BNP; Complete Time: 13: 3 11/28 12:12 Order name: PT-INR; Complete Time: 13: sp3 11/28 12:12 Order name: Troponin HS; Complete Time: 13: sp3 11/28 12:12 Order name: XRAY Chest (1 view); Complete Time: 13: 3 11/28 13:02 Order name: CT Head Brain wo Cont; Complete Time: 13:28 sp3 11/28 12:12 Order name: Cardiac monitoring; Complete Time: 12:49 sp3 11/28 12:12 Order name: EKG - Nurse/Tech; Complete Time: 12:49 sp3 11/28 12:12 Order name: IV Saline Lock; Complete Time: 12:49 sp3 11/28 12:12 Order name: Labs collected and sent; Complete Time: 12:49 sp3 11/28 12:12 Order name: O2 Per Protocol; Complete Time: 12:49 sp3 11/28 12:12 Order name: O2 Sat Monitoring; Complete Time: 12:49 sp3 Administered Medications: 14:07 Drug: HYDROmorphone IVP 1 mg IVP once Route: IVP; Site: left forearm; kj2 14:37 Follow up: Response: No adverse reaction kj2 14:07 Drug: Ondansetron IVP 4 mg IVP once; over 2 minutes Route: IVP; Site: left forearm; kj2 14:37 Follow up: Response: No adverse reaction kj2 Disposition Summary: 11/28/24 14:10 Discharge Ordered Notes: Location: Home sp3 Condition: Stable sp3 Diagnosis - Chest pain, paresthesia sp3 Followup: sp3 - With: Private Physician - When: Upon discharge from the Emergency Department - Reason: Continuance of care Discharge Instructions: - Discharge Summary Sheet sp3 - Nonspecific Chest Pain, Adult sp3 Forms: - Medication Reconciliation Form sp3 - Antibiotic Education sp3 - Prescription Opioid Use sp3 - Patient Portal Instructions sp3 - Leadership Thank You Letter sp3 Signatures: Dispatcher [employer] EDMS Keanu Crespo MD MD sp3 Daniella Vicente RN RN kj2 ADRIAN VERDIN RN RN dd2 Corrections: (The following items were deleted from the chart) 12:12 12:12 BASIC METABOLIC PANEL+C.LAB.BRZ ordered. EDMS EDMS 12:12 12:12 CBC+H.LAB.BRZ ordered. EDMS EDMS 12:12 12:12 HEPATIC FUNCTION+C.LAB.BRZ ordered. EDMS EDMS 12:12 12:12 MAGNESIUM+C.LAB.BRZ ordered. EDMS EDMS 12:12 12:12 PROBNP+C.LAB.BRZ ordered. EDMS EDMS 12:12 12:12 PROTIME (+INR)+COAG.LAB.BRZ ordered. EDMS EDMS 12: 12:12 Troponin High Sensitivity+C.LAB.BRZ ordered. EDMS EDMS 12:12 12:12 Chest Single View+RAD.RAD.BRZ ordered. EDMS EDMS 13:17 13:16 59-year-old male with history of chronic back pain, diabetes, hyperlipidemia,. sp3sp3
[2024-11-28 15:29] VITALS: TEMP 98.3; O2SAT 100
[2024-11-28 15:33] VITALS: BP 122/81
== END 2024-11-28 14:44 | disposition home or self-care (01) ==
LOC: ER 11:54
DX: R07.9 Chest pain, unspecified (principal); R20.2 Paresthesia of skin; I10 Essential (primary) hypertension; E78.00 Pure hypercholesterolemia, unspecified
CPT/HCPCS: 93005; 85025; 80048; 36415; 83735; 85610; 80076; 84484; 83880; 70450; 71045; 96375; 96374; 99285; J1171; J2405